=== PATIENT | male | born 1930 | race Caucasian/White ===

== ENCOUNTER 2016-04-09 16:17 | Emergency (ER) | payer MEDICARE, OTHER ==
--- NOTE | 2016-04-09 16:59 | ER Document Report ---
ED General - General Mode of Arrival: Medic Information source: Patient TRAVEL OUTSIDE OF THE [place] IN LAST 30 DAYS: No - HPI Patient complains to provider of: Weakness Onset: Other - 3-4 days ago Onset/Duration: Gradual, Worse Associated symptoms: Fever, Headache, Weakness. denies: Chest pain, Nonproductive cough, Shortness of breath, Sore throat Recently seen / treated by doctor: Yes - Recent Pneumonia <YNES HUYNH - Last Filed: 04/09/16 22:22> <SWEETIE HORN - Last Filed: 04/21/16 13:05> - General Chief Complaint: Fever Stated Complaint: FEVER Notes: Patient is an 86-year-old male presenting to the emergency department via EMS after he developed a fever of 102. Patient states that he has been feeling weak for the past 3-4 days and is progressively worsening. Patient states he was unable to consume any food today. Patient denies any throat pain or ear pain, but he does admit to a toothache that radiates behind his eyes and above his ears that he began noticing months ago. Patient also mentions that he has been having some mucousy diarrhea. Patient denies chest pain, cough, difficulty breathing, or abdominal pain. Patient has a recent history of sepsis and pneumonia on 2 separate occasions for which he went to rehab. (YNES HUYNH) - Related Data Allergies/Adverse Reactions: meperidine HCl [From Demerol] Allergy (Verified 04/09/16 16:47) HALLUCINATION morphine [Morphine] Allergy (Verified 04/09/16 16:47) HALLUCINATION albuterol Adverse Reaction (Mild, Verified 04/09/16 16:47) SORE THROAT Past Medical History - General Information source: Patient - Social History Smoking Status: Never Smoker Chew tobacco use (# tins/day): No Frequency of alcohol use: None Drug Abuse: None Family History: COPD Patient has suicidal ideation: No - Past Medical History Cardiac Medical History: Reports: Hx Atrial Fibrillation, Hx Hypertension - MEDS Denies: Hx Heart Attack Pulmonary Medical History: Reports: Hx Pneumonia Denies: Hx Asthma Neurological Medical History: Denies: Hx Cerebrovascular Accident, Hx Seizures Renal/ Medical History: Denies: Hx Peritoneal Dialysis GI Medical History: Reports: Hx Hiatal Hernia. Denies: Hx Hepatitis, Hx Ulcer Psychiatric Medical History: Reports: Hx Depression Infectious Medical History: Denies: Hx Hepatitis Past Surgical History: Reports: Hx Abdominal Surgery - colectomy. Denies: Hx Open Heart Surgery, Hx Pacemaker - Immunizations Hx Diphtheria, Pertussis, Tetanus Vaccination: - unk Hx Pneumococcal Vaccination: 12/01/15 <YNES HUYNH - Last Filed: 04/09/16 22:22> Review of Systems - Review of Systems Constitutional: See HPI, Fever, Weakness EENT: See HPI, Mouth pain - Tooth pain that radiates behind eyes and above ears.. denies: Ear pain, Throat pain Cardiovascular: No symptoms reported. denies: Chest pain Respiratory: No symptoms reported. denies: Cough Gastrointestinal: See HPI, Diarrhea. denies: Abdominal pain Genitourinary: No symptoms reported Male Genitourinary: No symptoms reported Musculoskeletal: No symptoms reported Skin: No symptoms reported Hematologic/Lymphatic: No symptoms reported Neurological/Psychological: No symptoms reported <YNES HUYNH - Last Filed: 04/09/16 22:22> Physical Exam - Vital signs Interpretation: Normal - General General appearance: Alert - HEENT Head: Normocephalic, Atraumatic Eyes: Normal Pupils: PERRL - Respiratory Respiratory status: No respiratory distress Chest status: Nontender Breath sounds: Normal Chest palpation: Normal - Cardiovascular Murmur: Yes - 3/4 systolic injection murmur - Abdominal Inspection: Other - large visceral hernia that is reducable. soft abdomen. Bowel sounds: Normal - Back Back: Normal, Nontender - Extremities General upper extremity: Normal inspection General lower extremity: Other - Chronic discoloration of lower extremities. R > L. Equal pulses. - Neurological Neuro grossly intact: Yes Cognition: Normal Leopold Coma Scale Eye Opening: Spontaneous Leopold Coma Scale Verbal: Oriented Ailin Coma Scale Motor: Obeys Commands Ailin Coma Scale Total: 15 Speech: Normal - Psychological Associated symptoms: Normal affect, Normal mood - Skin Skin Temperature: Warm Skin Moisture: Dry Skin Color: Normal <YNES HUYNH - Last Filed: 04/09/16 22:22> <SWEETIE HORN - Last Filed: 04/21/16 13:05> - Vital signs Vitals: Temp Pulse Resp BP Pulse Ox 100 F 82 23 H 126/78 H 94 04/09/16 16:20 04/09/16 16:20 04/09/16 16:20 04/09/16 16:20 04/09/16 16:20 (YNES HUYNH) (SWEETIE HORN) Course - Laboratory Result Diagrams: 04/09/16 16:50 04/09/16 16:50 <YNES HUYNH - Last Filed: 04/09/16 22:22> - Laboratory Result Diagrams: 04/09/16 16:50 04/09/16 16:50 <SWEETIE HORN - Last Filed: 04/21/16 13:05> - Re-evaluation Re-evalutation: 04/09/16 23:38 I personally performed the services described in the documentation, reviewed and edited the documentation which was dictated to my scribe in my presence, and it accurately records my words and actions. Patient presents emergency Department with a chief complaint of fever. Patient was inpatient back in December for pneumonia DC on 11:30 went to rehabilitation facility is at home now with home health, nurse almost every day of the week helping out with his daily activities abating.The fever today says he gets urinary tract infections frequently. He presented with a fever of 102.9 which defervesced with medication history of A. fib A. fib on the monitor rate controlled. Pulse ox 9596% on room air normotensive. Patient well-appearing nontoxic no cough chest pain or shortness of breath. Abdomen is soft no tenderness guarding rebound rigidity no skin changes or cellulitis. EKG interpreted myself A. fib rate controlled with history of the same. Chest x-ray negative for acute pathology urinary tract infection positive for infection and hematuria CT scan absent kidney stone or infection. Patient given IV Rocephin reassessed at bedside no longer tachycardic at the bedside fever is improved normotensive patient states he feels great and wants to go home. He assures me that he can follow up with his primary care physician one day. We'll send him home on Macrobid 12 to 24-hour follow-up and discuss reasons for ED return sooner (SWEETIE HORN) - Vital Signs Vital signs: Temp Pulse Resp BP Pulse Ox 100 F 82 18 118/45 L 94 04/09/16 16:20 04/09/16 16:20 04/09/16 19:45 04/10/16 00:01 04/10/16 00:01 (YNES HUYNH) (SWEETIE HORN) - Laboratory Laboratory results interpreted by me: 02/08/17 02/08/17 02/08/17 16:50 16:50 16:50 RBC 3.60 L Hgb 11.1 L Hct 33.6 L RDW 16.8 H Plt Count 142 L Seg Neutrophils % 78.6 H Lymphocytes % 9.3 L Glucose 161 H Magnesium 1.3 L AST 14 L Total Protein 5.7 L Albumin 2.9 L Urine Protein Urine Blood Urine Nitrite Ur Leukocyte Esterase 04/09/16 17:15 RBC Hgb Hct RDW Plt Count Seg Neutrophils % Lymphocytes % Glucose Magnesium AST Total Protein Albumin Urine Protein 100 H Urine Blood LARGE H Urine Nitrite POSITIVE H Ur Leukocyte Esterase LARGE H (SWEETIE HORN) Discharge <YNES HUYNH - Last Filed: 04/09/16 22:22> <SWEETIE HORN - Last Filed: 04/21/16 13:05> - Discharge Clinical Impression: Urinary tract infection Condition: Stable Disposition: HOME, SELF-CARE Instructions: Urinary Tract Infection ([facility]) Additional Instructions: Urinary Tract Infection Your evaluation indicates that you have a urinary tract infection. This is due to germs growing in the bladder. This is a common problem. This infection usually responds quickly to antibiotics. Your antibiotic should be taken exactly as prescribed. Drink plenty of fluids -- three to four quarts a day. Occasionally, a bladder anesthetic will be prescribed to help stop the feeling of urgency until the antibiotic has a chance to clear the infection. This may cause your urine to be dark orange. Certain urine infections require a culture. If the doctor obtained a culture, the results will be back in two days. You should call to see if a change in treatment is needed. A repeat urinalysis after you finish treatment is often recommended. The physician will let you know if further testing is required. Call the doctor if you develop fever, chills, flank pain, inability to urinate, or blood in the urine. Operative primary care physician in 12-24 hours return for increasing worsening or new symptoms Prescriptions: Nitrofurantoin/Nitrofuran Mac [Macrobid 100 mg Capsule] 1 tab PO BID #20 capsule Scribe Documentation - Scribe Written by Luisito:: Ynes Huynh 04/09/2016 [id number] acting as scribe for :: Preston <YNES HUYNH - Last Filed: 04/09/16 22:22>
[2016-04-09 17:06] LABS: ABSOLUTE EOSINOPHILS # (AUTO) 0.1 10^3/uL (0.0-0.6); ABSOLUTE LYMPHOCYTES (AUTO) 0.8 10^3/uL (0.5-4.7); ABSOLUTE MONOCYTES (AUTO) 0.8 10^3/uL (0.1-1.4); ABSOLUTE NEUT (AUTO) 6.5 10^3/uL (1.7-8.2); BASOPHILS % (AUTO) 0.4 % (0-2); EOSINOPHILS % (AUTO) 1.7 % (0-6); HEMATOCRIT 33.6 % (37.9-51.0); HEMOGLOBIN 11.1 g/dL (13.5-17.0); HGB HCT DIFFERENCE -0.3; LYMPHOCYTES % (AUTO) 9.3 % (13-45); MEAN CORPUSCULAR HEMOGLOBIN 30.8 pg (27.0-33.4); MEAN CORPUSCULAR VOLUME 93 fl (80-97); RED CELL DISTRIBUTION WIDTH 16.8 % (11.5-14.0); SEGMENTED NEUTROPHILS % (AUTO) 78.6 % (42-78); WHITE BLOOD COUNT 8.2 10^3/uL (4.0-10.5)
[2016-04-09 17:07] LABS: VENOUS BLOOD BASE EXCESS -4.6 mmol/L; VENOUS BLOOD HCO3 21.8 mmol/L (20-32); VENOUS BLOOD PCO2 45.2 mmHg (35-63); VENOUS BLOOD PH 7.3 (7.30-7.42)
[2016-04-09 17:11] LABS: PROTHROMBIN TIME 14.5 SEC (11.4-15.4)
[2016-04-09 17:24] LABS: ALANINE AMINOTRANSFERASE 23 U/L (21-72); ALBUMIN 2.9 g/dL (3.5-5.0); ALKALINE PHOSPHATASE 42 U/L (38-126); ANION GAP 12 (5-19); ASPARTATE AMINO TRANSFERASE 14 U/L (17-59); BILIRUBIN,TOTAL 0.7 mg/dL (0.2-1.3); BLOOD UREA NITROGEN 17 mg/dL (7-20); CALCIUM 8.4 mg/dL (8.4-10.2); CARBON DIOXIDE 23 mmol/L (22-30); CHLORIDE 104 mmol/L (98-107); CREATININE RESULT 0.92 mg/dL (0.52-1.25); GLUCOSE 161 mg/dL (75-110); POTASSIUM 4.1 mmol/L (3.6-5.0); SODIUM 138.8 mmol/L (137-145); TOTAL PROTEIN 5.7 g/dL (6.3-8.2)
[2016-04-09] MEDS ORDERED: ACETAMINOPHEN 325 MG TABLET PO ONE (17:53)
[2016-04-09 18:06] LABS: APPEARANCE,URINE CLOUDY; BILIRUBIN,URINE NEGATIVE (NEGATIVE); GLUCOSE, URINE NEGATIVE (NEGATIVE); KETONES,URINE NEGATIVE (NEGATIVE); LEUKOCYTE ESTERASE,URINE LARGE (NEGATIVE); NITRITE,URINE POSITIVE (NEGATIVE); PROTEIN,URINE 100 mg/dL (NEGATIVE); URINE SPECIFIC GRAVITY 1.013; UROBILINOGEN,URINE NEGATIVE mg/dL (<2.0)
[2016-04-09] MEDS ORDERED: CEFTRIAXONE INJ 1000 MG VIAL IV ONE (20:52)
[2016-04-10 00:26] VITALS: BP 118/45
--- NOTE | 2016-04-10 08:23 | EKG REPORT ---
SEVERITY:- ABNORMAL ECG - ATRIAL FIBRILLATION RIGHT BUNDLE BRANCH BLOCK : Confirmed by: Franko Sanchez MD 10-Apr-2016 08:23:13
== END 2016-04-10 00:29 | disposition home or self-care (01) ==
LOC: ER 16:17
DX: N39.0 Urinary tract infection, site not specified (principal); R31.9 Hematuria, unspecified; R50.9 Fever, unspecified; R53.1 Weakness; K08.89 Other specified disorders of teeth and supporting structures; R19.7 Diarrhea, unspecified; K46.9 Unspecified abdominal hernia without obstruction or gangrene; R01.1 Cardiac murmur, unspecified; I48.91 Unspecified atrial fibrillation; I10 Essential (primary) hypertension; Z87.01 Personal history of pneumonia (recurrent); Z88.5 Allergy status to narcotic agent; Z90.49 Acquired absence of other specified parts of digestive tract
CPT/HCPCS: 93005; 99285; 96374; 36415; 87040; 87086; 83735; 85025; 85610; 87088; 80053; 81001; 87186; 82803; 83605; 71010; 74176; 93010; A9270; J0696

== ENCOUNTER → 2016-05-22 | Outpatient (CLI) | payer MEDICARE, OTHER | LOC: OD 14:10 | PROVIDERS: ATTEND Urology | DX: N40.0 Benign prostatic hyperplasia without lower urinary tract symptoms (principal) | CPT/HCPCS: 36415; 84153 ==

== ENCOUNTER 2016-08-21 07:53 | Emergency (ER) | payer OTHER, MEDICARE ==
[2016-08-21 08:37] LABS: ABSOLUTE EOSINOPHILS # (AUTO) 0.1 10^3/uL (0.0-0.6); ABSOLUTE LYMPHOCYTES (AUTO) 0.5 10^3/uL (0.5-4.7); ABSOLUTE MONOCYTES (AUTO) 0.2 10^3/uL (0.1-1.4); ABSOLUTE NEUT (AUTO) 6.6 10^3/uL (1.7-8.2); BASOPHILS % (AUTO) 0.3 % (0-2); EOSINOPHILS % (AUTO) 1.4 % (0-6); HEMATOCRIT 41.1 % (37.9-51.0); HGB HCT DIFFERENCE -2.1; LYMPHOCYTES % (AUTO) 6.3 % (13-45); MEAN CORPUSCULAR HEMOGLOBIN 30.3 pg (27.0-33.4); MEAN CORPUSCULAR HGB CONC 31.6 g/dL (32.0-36.0); MEAN CORPUSCULAR VOLUME 96 fl (80-97); MONOCYTES % (AUTO) 2.9 % (3-13); RED BLOOD COUNT 4.28 10^6/uL (4.35-5.55); RED CELL DISTRIBUTION WIDTH 14.6 % (11.5-14.0); SEGMENTED NEUTROPHILS % (AUTO) 89.1 % (42-78); WHITE BLOOD COUNT 7.4 10^3/uL (4.0-10.5)
[2016-08-21 08:39] LABS: APPEARANCE,URINE CLEAR; BILIRUBIN,URINE NEGATIVE (NEGATIVE); GLUCOSE, URINE NEGATIVE (NEGATIVE); KETONES,URINE NEGATIVE (NEGATIVE); LEUKOCYTE ESTERASE,URINE NEGATIVE (NEGATIVE); NITRITE,URINE NEGATIVE (NEGATIVE); PROTEIN,URINE NEGATIVE (NEGATIVE); URINE SPECIFIC GRAVITY 1.014; UROBILINOGEN,URINE NEGATIVE mg/dL (<2.0)
[2016-08-21 08:53] LABS: ALANINE AMINOTRANSFERASE 27 U/L (21-72); ALBUMIN 4.3 g/dL (3.5-5.0); ALKALINE PHOSPHATASE 53 U/L (38-126); ANION GAP 12 (5-19); ASPARTATE AMINO TRANSFERASE 22 U/L (17-59); BILIRUBIN,DIRECT 0.3 mg/dL (0.0-0.4); BILIRUBIN,TOTAL 0.8 mg/dL (0.2-1.3); BLOOD UREA NITROGEN 30 mg/dL (7-20); CALCIUM 9.2 mg/dL (8.4-10.2); CARBON DIOXIDE 27 mmol/L (22-30); CHLORIDE 103 mmol/L (98-107); CREATININE RESULT 0.94 mg/dL (0.52-1.25); GLUCOSE 115 mg/dL (75-110); POTASSIUM 5.4 mmol/L (3.6-5.0); SODIUM 141.7 mmol/L (137-145); TOTAL PROTEIN 7.7 g/dL (6.3-8.2)
--- NOTE | 2016-08-21 09:01 | RADIOLOGY REPORT (SQ) ---
EXAM DESCRIPTION: CHEST SINGLE VIEW COMPLETED DATE/TIME: 08/21/2016 8:44 am REASON FOR STUDY: shaking, chf, hypoxia COMPARISON: 04/09/2016, 01/23/2016 EXAM PARAMETERS: NUMBER OF VIEWS: One view. TECHNIQUE: Single frontal radiographic view of the chest acquired. RADIATION DOSE: NA LIMITATIONS: None. FINDINGS: LUNGS AND PLEURA: Bandlike scarring or atelectasis unchanged in the left mid lung. Few Janeth lines at both lung bases, question mild interstitial edema. No alveolar infiltrates worri some for alveolar edema or pneumonia. No pleural effusion. No pneumothorax. MEDIASTINUM AND HILAR STRUCTURES: No masses. Contour normal. HEART AND VASCULAR STRUCTURES: Mild cardiomegaly BONES: No acute findings. HARDWARE: None in the chest. OTHER: No other significant finding. IMPRESSION: Cardiomegaly Few Janeth lines at both bases, question mild interstitial edema. Chronic scarring left mid lung TECHNICAL DOCUMENTATION: JOB ID: [id number]
[2016-08-21] MEDS ORDERED: ALBUTEROL SULFATE 0.083% NEB 2.5 MG/3 ML AMPUL NEB ONE (09:09)
[2016-08-21] MEDS ORDERED: CEFTRIAXONE 1 GM/D5W RTU 50 ML IV ONE (09:10)
[2016-08-21] MEDS ORDERED: NORMAL SALINE 1000 ML 1,000 ML IV ONE (09:21)
--- NOTE | 2016-08-21 09:22 | ER Document Report ---
ED General - General Chief Complaint: Tremor Stated Complaint: UPPER EXTREMITY PROBLEM Time Seen by Provider: 08/21/16 08:10 Mode of Arrival: Ambulatory Information source: Patient Notes: Patient is an 86-year-old male who lives by himself at home who presents to the ER today for chills that began at 230 this morning with shaking. Patient states that this is what happened last time he had a urinary tract infection and had to be admitted to the hospital due to sepsis. He denies any dysuria, hematuria, lower abdominal pain but does admit to some worsening back pain, although he does have back pain chronically. He denies any fever that he knows of, nausea, vomiting, diarrhea, chest pain, shortness of breath or cough. He states that he really felt fine until 230 this morning. TRAVEL OUTSIDE OF THE [place] IN LAST 30 DAYS: No - Related Data Allergies/Adverse Reactions: meperidine HCl [From Demerol] Allergy (Verified 04/09/16 16:47) HALLUCINATION morphine [Morphine] Allergy (Verified 04/09/16 16:47) HALLUCINATION albuterol Adverse Reaction (Mild, Verified 04/09/16 16:47) SORE THROAT Past Medical History - General Information source: Patient - Social History Smoking Status: Never Smoker Chew tobacco use (# tins/day): No Frequency of alcohol use: None Drug Abuse: None Family History: COPD - Past Medical History Cardiac Medical History: Reports: Hx Atrial Fibrillation, Hx Hypercholesterolemia, Hx Hypertension - MEDS Denies: Hx Heart Attack Pulmonary Medical History: Reports: Hx Pneumonia Denies: Hx Asthma Neurological Medical History: Denies: Hx Cerebrovascular Accident, Hx Seizures Endocrine Medical History: Reports: Hx Diabetes Mellitus Type 2 Renal/ Medical History: Denies: Hx Peritoneal Dialysis GI Medical History: Reports: Hx Hiatal Hernia. Denies: Hx Hepatitis, Hx Ulcer Psychiatric Medical History: Reports: Hx Depression Infectious Medical History: Denies: Hx Hepatitis Past Surgical History: Reports: Hx Abdominal Surgery - colectomy, Hx Bowel Surgery - partial colectomy, Hx Cholecystectomy. Denies: Hx Open Heart Surgery , Hx Pacemaker - Immunizations Hx Diphtheria, Pertussis, Tetanus Vaccination: - unk Hx Pneumococcal Vaccination: 12/01/15 Review of Systems - Review of Systems Constitutional: See HPI EENT: No symptoms reported Cardiovascular: No symptoms reported Respiratory: No symptoms reported Gastrointestinal: No symptoms reported Genitourinary: See HPI Male Genitourinary: No symptoms reported Musculoskeletal: No symptoms reported Skin: No symptoms reported Hematologic/Lymphatic: No symptoms reported Neurological/Psychological: No symptoms reported Physical Exam - Vital signs Vitals: Temp Pulse Resp BP Pulse Ox 98.8 F 87 18 152/57 H 96 08/21/16 08:10 08/21/16 08:10 08/21/16 08:10 08/21/16 08:10 08/21/16 08:10 - Notes Notes: PHYSICAL EXAMINATION: GENERAL: Mildly ill-appearing, having chills with some shaking generally, but in no acute distress. HEAD: Atraumatic, normocephalic. EYES: Pupils equal round and reactive to light, extraocular movements intact, sclera anicteric, conjunctiva are normal. NECK: Normal range of motion, supple without lymphadenopathy LUNGS: CTAB and equal. No wheezes rales or rhonchi. HEART: Regular rate and rhythm without murmurs ABDOMEN: Soft, no tenderness. No guarding, no rebound BACK: no vertebral tenderness, normal ROM GI/: no CVA tenderness EXTREMITIES: Normal range of motion, no pitting edema. No cyanosis. NEUROLOGICAL: Cranial nerves grossly intact. Normal sensory/motor exams. PSYCH: Normal mood, normal affect. SKIN: Warm, Dry, normal turgor, no rashes or lesions noted Course - Re-evaluation Re-evalutation: 08/21/16 09:22 pt takes potassium, his potassium is a little high today, 5.4, I advised him to hold it for 1-2 days and follow up with pcp. 08/21/16 10:19 pt has been admitted with sepsis from urine and says this feels the same, his chest x ray is without abnormality. urine shows blood today and 2 wbc but no other signs of infection, labwork unremarkable, wbc normal, pt afebrile with normal vital signs. There is no reason to admit him with normal workup, but I will cover for possible uti that was not caught today and urine culture is pending. I do not want pt to come back septic and he does appear to be having sweating and chills here in ER. - Vital Signs Vital signs: Temp Pulse Resp BP Pulse Ox 98.8 F 87 18 152/57 H 96 08/21/16 08:10 08/21/16 08:10 08/21/16 08:10 08/21/16 08:10 08/21/16 08:10 - Laboratory Result Diagrams: 08/21/16 08:00 08/21/16 08:00 Laboratory results interpreted by me: 08/21/16 08/21/16 08/21/16 08:00 08:00 08:00 RBC 4.28 L Hgb 13.0 L MCHC 31.6 L RDW 14.6 H Plt Count 142 L Seg Neutrophils % 89.1 H Lymphocytes % 6.3 L Monocytes % 2.9 L Potassium 5.4 H BUN 30 H Glucose 115 H Urine Blood MODERATE H Discharge - Discharge Clinical Impression: Chills (without fever) Condition: Stable Disposition: HOME, SELF-CARE Additional Instructions: Return with worsening symptoms. Follow up with your primary care provider, call today for follow up appointment. Prescriptions: Cephalexin [Cephalexin 500 MG Capsule] 1 cap PO QID #28 capsule
[2016-08-21 10:49] VITALS: BP 116/58
== END 2016-08-21 10:49 | disposition home or self-care (01) ==
LOC: ER 07:53
DX: R68.83 Chills (without fever) (principal); R31.9 Hematuria, unspecified; M54.9 Dorsalgia, unspecified; G89.29 Other chronic pain; I10 Essential (primary) hypertension; E11.9 Type 2 diabetes mellitus without complications; Z87.440 Personal history of urinary (tract) infections; Z88.5 Allergy status to narcotic agent
CPT/HCPCS: 99284; 96361; 96365; 36415; 87086; 85025; 80053; 81001; 71010; J7030; J0696

== ENCOUNTER 2016-10-17 11:53 | Inpatient (IN) | payer OTHER, MEDICARE ==
[2016-10-17] MEDS ORDERED: ALBUTEROL SULFATE 0.083% NEB 2.5 MG/3 ML AMPUL NEB ONE (12:10)
--- NOTE | 2016-10-17 12:10 | ER Document Report ---
ED Respiratory Problem - General Mode of Arrival: Medic Information source: Patient, Emergency Med Personnel TRAVEL OUTSIDE OF THE [place] IN LAST 30 DAYS: No - HPI Patient complains to provider of: Short of breath Associated symptoms: Other - see above <YUMIKO CASTILLO - Last Filed: 10/17/16 14:53> <ASHLEE AVILA - Last Filed: 10/17/16 19:23> - General Stated Complaint: PAIN ALL OVER Time Seen by Provider: 10/17/16 11:59 Notes: Patient is an 86 year old male who presents to the ED via EMS from home with complaints of generalized intermittent body aches and sudden onset episode of diarrhea this morning. Per EMS patient had breakfast this morning, had a normal appetite and had a sudden episode of diarrhea and an episode of fecal incontinence. Patient is unsure if he possibly just did not wipe well enough. Upon arrival to the ED he became SOB and was shaking which is new for him. Patient has a chronically distended abdomen and left abdominal pain. Patient denies any chest pain currently. Patient does add that he started having a pain in his left thigh this morning, but he no longer has that pain. He finished antibiotics for cellulitis of his lower legs approximately 1 month ago. PCP: Juan Jones (YUMIKO CASTILLO) - Related Data Allergies/Adverse Reactions: meperidine HCl [From Demerol] Allergy (Verified 10/17/16 13:08) HALLUCINATION morphine [Morphine] Allergy (Verified 10/17/16 13:08) HALLUCINATION albuterol Adverse Reaction (Mild, Verified 10/17/16 13:08) SORE THROAT Home Medications: Current Home Medications Acetaminophen [Tylenol Extra Strength 500 mg Tablet] 2 tab PO Q6HP PRN 10/17/16 [History] Alprazolam [Xanax 0.5 mg Tablet] 0.5 mg PO Q6HP PRN 10/17/16 [History] Aspirin [Aspirin EC] 81 mg PO DAILY 10/17/16 [History] Atorvastatin Calcium [Lipitor 10 mg Tablet] 10 mg PO QHS 10/17/16 [History] Cholecalciferol (Vitamin D3) [Vitamin D3 1000 Unit Tablet] 1,000 unit PO DAILY 10/17/16 [History] Escitalopram Oxalate [Lexapro 10 mg Tablet] 10 mg PO DAILY 10/17/16 [History] Furosemide [Lasix 40 mg Tablet] 40 mg PO DAILYP PRN 10/17/16 [History] Glimepiride [Amaryl] 2 mg PO QAM 10/17/16 [History] Isosorbide Mononitrate [Imdur 60 mg Tablet.er] 60 mg PO DAILY 10/17/16 [History] Losartan Potassium [Cozaar 50 mg Tablet] 25 mg PO DAILY 10/17/16 [History] Metoprolol Succinate [Toprol Xl 25 mg Tab.sr] 25 mg PO DAILY 10/17/16 [History] Nitroglycerin [Nitrolingual] 1 applic SL Q5MP PRN 10/17/16 [History] Omeprazole 40 mg PO QAM 10/17/16 [History] Potassium Chloride [K-Tab ER] 20 meq PO DAILY 10/17/16 [History] Tamsulosin HCl [Flomax 0.4 mg Cap.sr] 0.4 mg PO DAILY 10/17/16 [History] Umeclidinium Brm/Vilanterol Tr [Anoro Ellipta 62.5-25 Mcg INH] 1 each IH DAILY 10/17/16 [History] Past Medical History - General Information source: Patient - Social History Smoking Status: Former Smoker Chew tobacco use (# tins/day): No Frequency of alcohol use: None Drug Abuse: None Family History: COPD - Past Medical History Cardiac Medical History: Reports: Hx Atrial Fibrillation, Hx Hypercholesterolemia, Hx Hypertension - MEDS Pulmonary Medical History: Reports: Hx COPD, Hx Pneumonia Endocrine Medical History: Reports: Hx Diabetes Mellitus Type 2 Renal/ Medical History: Denies: Hx Peritoneal Dialysis GI Medical History: Reports: Hx Hiatal Hernia Psychiatric Medical History: Reports: Hx Anxiety, Hx Depression Infectious Medical History: Denies: Hx Hepatitis Past Surgical History: Reports: Hx Abdominal Surgery - colectomy, Hx Bowel Surgery - partial colectomy, Hx Cardiac Catheterization - stent placement, Hx Cholecystectomy. Denies: Hx Open Heart Surgery, Hx Pacemaker - Immunizations Hx Diphtheria, Pertussis, Tetanus Vaccination: - unk Hx Pneumococcal Vaccination: 12/01/15 <YUMIKO CASTILLO - Last Filed: 10/17/16 14:53> Review of Systems - Review of Systems Constitutional: See HPI, Other - generalized body aches EENT: No symptoms reported Cardiovascular: See HPI. denies: Chest pain Respiratory: See HPI, Short of breath Gastrointestinal: See HPI, Diarrhea Genitourinary: No symptoms reported Male Genitourinary: No symptoms reported Musculoskeletal: No symptoms reported Skin: No symptoms reported Hematologic/Lymphatic: No symptoms reported Neurological/Psychological: See HPI, Tremor <YUMIKO CASTILLO - Last Filed: 10/17/16 14:53> Physical Exam <YUMIKO CASTILLO - Last Filed: 10/17/16 14:53> <ASHLEE AVILA - Last Filed: 10/17/16 19:23> - Vital signs Vitals: Resp Pulse Ox 41 H 84 L 10/17/16 12:07 10/17/16 12:07 - Notes Notes: GENERAL: Alert, interacts well. Appears uncomfortable. Appears short of breath. HEAD: Normocephalic, atraumatic. EYES: Pupils equal, round, and reactive to light. Extraocular movements intact. ENT: Oral mucosa dry, tongue midline. NECK: Full range of motion. Supple. Trachea midline. LUNGS: Rales, expiratory wheezes. Appears somewhat short of breath. Mouth breathing, using accessory muscles to breath. Hypoxic, 78% on room air. He was 87% on 4L. HEART: Tachycardic, irregularly irregular. No murmurs, gallops, or rubs. ABDOMEN: Soft, non-tender. Distended, patient reports it is chronic. Bowel sounds present in all 4 quadrants. EXTREMITIES: Moves all 4 extremities spontaneously. 2 plus pitting edema bilaterally, right greater than left up to mid calf. No cyanosis. NEUROLOGICAL: Alert and oriented x3. Normal speech. Tremor to right upper extremity, mild tremor to left upper extremity. No tremor to lower extremities. PSYCH: Normal affect, normal mood. SKIN: Hot to touch. Dry, normal turgor. Erythema to lower inner left thigh and posteriorly. (YUMIKO CASTILLO) Course - Laboratory Result Diagrams: 10/17/16 12:15 10/17/16 12:15 - Consults Time consulted: 13:48 Dr. Bullard Time consulted: 13:49 <YUMIKO CASTILLO - Last Filed: 10/17/16 14:53> - Laboratory Result Diagrams: 10/17/16 12:15 10/17/16 12:15 <ASHLEE AVILA - Last Filed: 10/17/16 19:23> - Re-evaluation Re-evalutation: 10/17/16 14:06 Patient arrived was hypoxic and quite tachypneic, placed on 4 L via nasal cannula but did not improve significantly pulse ox went from 78 up to 83% 10/17/16 14:16 Despite being on oxygen the patient's oxygen level did not rise above 83%, patient was placed on BiPAP, 12/5 with 50% FiO2, he was able to be titrated down to 30% FiO2, responded well, no longer using accessory muscles of respiration or belly breathing. Wheezing is decreased. Patient was found to be febrile on rectal temperature. CBC does not have any leukocytosis though he is anemic with hemoglobin of 11.4, coags normal, venous blood gas shows respiratory acidosis with pH of 7.25 and a PCO2 of 68.8, this is also treated with the BiPAP and albuterol. CMP shows elevated potassium of 5.2 which will be treated with the Lasix which was also given for the peripheral edema and the crackles in the lungs, no evidence of renal failure, lactic acid normal, cardiac enzymes negative, proBNP elevated at 1200, no history of congestive heart failure, patient was given Lasix 40 mg IV, urinalysis does not show any signs of infection. Chest x-ray shows cardiomegaly without overt CHF, there is a right lower lobe pneumonia. Patient was started on cefepime and Levaquin due to his Pseudomonas risk. Patient is given Solu-Medrol as well. Discussed the patient with Dr. Petersen from the hospitalist service who accepts the patient to her service. Patient is a full admission, patient will be put in the ICU as the patient has just recently experienced hypotension with a blood pressure of 86/44, he will be given a bolus of normal saline and we will see how he responds to this. If his blood pressure improves he may be transferred to the IMCU instead. 10/17/16 15:24 Patient did become somewhat hypotensive, received 2 L of normal saline which improved the hypotension however did not completely resolve it. Patient will continue to be assigned to the intensive care unit. As the patient's hypotension is fluid responsive at present I do not feel the patient needs a central line and pressors. I did inform Dr. Petersen of this development. She is on her way to see the patient in the emergency department. (ASHLEE AVILA) - Vital Signs Vital signs: Temp Pulse Resp BP Pulse Ox 98.1 F 92 22 H 90/51 L 98 10/17/16 16:09 10/17/16 18:00 10/17/16 18:00 10/17/16 18:00 10/17/16 18:00 - Laboratory Laboratory results interpreted by me: 10/17/16 10/17/16 10/17/16 12:15 12:15 12:15 RBC 3.71 L Hgb 11.4 L Hct 35.5 L RDW 14.5 H Seg Neutrophils % 82.7 H Lymphocytes % 9.5 L VBG pH VBG pCO2 Potassium 5.2 H Chloride 108 H Glucose 120 H AST 16 L Creatine Kinase 47 L NT-Pro-B Natriuret Pep 1200 H Urine Blood 10/17/16 10/17/16 12:15 12:45 RBC Hgb Hct RDW Seg Neutrophils % Lymphocytes % VBG pH 7.25 L VBG pCO2 68.8 H* Potassium Chloride Glucose AST Creatine Kinase NT-Pro-B Natriuret Pep Urine Blood MODERATE H - EKG Interpretation by Me Additional EKG results interpreted by me: 10/17/16 14:18 EKG shows atrial fibrillation at a rate of 88, slight ST segment depression <1 mm in leads II, 3, aVF, V3 through V6, no ST segment elevations, concordant T- wave inversions in V2 per my interpretation. (ASHLEE AVILA) - Consults Reason for consultation: 10/17/16 13:48 Discussed patient. She said to call Dr. Bullard. (YUMIKO CASTILLO) Dr. Bullard Reason for consultation: 10/17/16 13:[address] Bullard, she did not answer. 10/17/16 1350 Discussed patient. Patient is accepted for admission to ICU. (YUMIKO CASTILLO) Critical Care Note - Critical Care Note Total time excluding time spent on procedures (mins): 45 <ASHLEE AVILA - Last Filed: 10/17/16 19:23> Discharge <YUMIKO CASTILLO - Last Filed: 10/17/16 14:53> - Discharge Admitting Provider: Kandice Bullard Unit Admitted: ICU <ASHLEE AVILA - Last Filed: 10/17/16 19:23> - Discharge Clinical Impression: COPD exacerbation, Acute hypercapnic respiratory failure, Hyperkalemia Right lower lobe pneumonia Qualifiers: Pneumonia type: due to unspecified organism Qualified Code(s): J18.1 - Lobar pneumonia, unspecified organism Condition: Serious Disposition: ADMITTED INPATIENT Scribe Attestation: 10/17/16 19:22 I personally performed the services described in the documentation, reviewed and edited the documentation which was dictated to the scribe in my presence, and it accurately records my words and actions. (ASHLEE AVILA) Scribe Documentation - Scribe Written by Shama:: shama Palomo, 10/17/2016, 1247 acting as scribe for :: Adelaida <YUMIKO CASTILLO - Last Filed: 10/17/16 14:53>
[2016-10-17] MEDS ORDERED: FUROSEMIDE INJ/PF 40 MG/4 ML SDV IV ONE (12:12)
[2016-10-17] MEDS ORDERED: ASPIRIN 81 MG TABLET, CHEWABLE PO ONE (12:12)
[2016-10-17 12:40] LABS: ABSOLUTE BASOPHILS # (AUTO) 0.1 10^3/uL (0.0-0.2); ABSOLUTE EOSINOPHILS # (AUTO) 0.1 10^3/uL (0.0-0.6); ABSOLUTE LYMPHOCYTES (AUTO) 0.8 10^3/uL (0.5-4.7); ABSOLUTE MONOCYTES (AUTO) 0.5 10^3/uL (0.1-1.4); ABSOLUTE NEUT (AUTO) 6.9 10^3/uL (1.7-8.2); BASOPHILS % (AUTO) 0.6 % (0-2); EOSINOPHILS % (AUTO) 1.4 % (0-6); HEMATOCRIT 35.5 % (37.9-51.0); HEMOGLOBIN 11.4 g/dL (13.5-17.0); HGB HCT DIFFERENCE -1.3; LYMPHOCYTES % (AUTO) 9.5 % (13-45); MEAN CORPUSCULAR HEMOGLOBIN 30.6 pg (27.0-33.4); MEAN CORPUSCULAR VOLUME 96 fl (80-97); MONOCYTES % (AUTO) 5.8 % (3-13); RED BLOOD COUNT 3.71 10^6/uL (4.35-5.55); RED CELL DISTRIBUTION WIDTH 14.5 % (11.5-14.0); SEGMENTED NEUTROPHILS % (AUTO) 82.7 % (42-78); WHITE BLOOD COUNT 8.4 10^3/uL (4.0-10.5)
[2016-10-17 12:41] LABS: VENOUS BLOOD BASE EXCESS 0.4 mmol/L; VENOUS BLOOD HCO3 29.2 mmol/L (20-32); VENOUS BLOOD PH 7.25 (7.30-7.42)
[2016-10-17] MEDS ORDERED: ACETAMINOPHEN 650 MG SUPP.RECT PR ONE (12:46)
[2016-10-17 12:49] LABS: VENOUS BLOOD PCO2 68.8 mmHg (35-63)
[2016-10-17 12:50] LABS: PROTHROMBIN TIME 13.7 SEC (11.4-15.4)
[2016-10-17] MEDS ORDERED: ASPIRIN 300 MG SUPP, RECTAL PR ONE (12:53)
[2016-10-17 13:11] LABS: ALANINE AMINOTRANSFERASE 24 U/L (21-72); ALKALINE PHOSPHATASE 54 U/L (38-126); ANION GAP 8 (5-19); ASPARTATE AMINO TRANSFERASE 16 U/L (17-59); BILIRUBIN,DIRECT 0.4 mg/dL (0.0-0.4); BLOOD UREA NITROGEN 20 mg/dL (7-20); CALCIUM 9.1 mg/dL (8.4-10.2); CARBON DIOXIDE 26 mmol/L (22-30); CHLORIDE 108 mmol/L (98-107); CREATINE KINASE 47 U/L (55-170); CREATININE RESULT 0.85 mg/dL (0.52-1.25); GLUCOSE 120 mg/dL (75-110); POTASSIUM 5.2 mmol/L (3.6-5.0); SODIUM 142.2 mmol/L (137-145)
[2016-10-17 13:14] LABS: APPEARANCE,URINE CLEAR; BILIRUBIN,URINE NEGATIVE (NEGATIVE); GLUCOSE, URINE NEGATIVE (NEGATIVE); KETONES,URINE NEGATIVE (NEGATIVE); LEUKOCYTE ESTERASE,URINE NEGATIVE (NEGATIVE); NITRITE,URINE NEGATIVE (NEGATIVE); PROTEIN,URINE NEGATIVE (NEGATIVE); URINE SPECIFIC GRAVITY 1.017; UROBILINOGEN,URINE NEGATIVE mg/dL (<2.0)
--- NOTE | 2016-10-17 13:20 | RADIOLOGY REPORT (SQ) ---
EXAM DESCRIPTION: CHEST SINGLE VIEW COMPLETED DATE/TIME: 10/17/2016 1:01 pm REASON FOR STUDY: SOB, hypoxia COMPARISON: 08/21/2016 EXAM PARAMETERS: NUMBER OF VIEWS: One view. TECHNIQUE: Digital Frontal radiographic views of the chest acquired. RADIATION DOSE: NA LIMITATIONS: None. FINDINGS: LUNGS AND PLEURA: Subsegmental atelectasis left mid lung. Ill-defined opacification in th e right lung base. MEDIASTINUM AND HILAR STRUCTURES: No masses or contour abnormalities. HEART AND VASCULAR STRUCTURES: Cardiomegaly with no evidence failure. BONES: No acute findings. HARDWARE: None. OTHER: No other significant finding. IMPRESSION: 1. Cardiomegaly with no eliana CHF. 2. Possible early right lower lobe pneumonia. TECHNICAL DOCUMENTATION: JOB ID: [id number] [employer]- All Rights Reserved
[2016-10-17 13:23] LABS: CREATINE KINASE MB 1.32 ng/mL (<4.55)
[2016-10-17 13:26] LABS: TROPONIN I < 0.012 ng/mL
[2016-10-17] MEDS ORDERED: CEFTRIAXONE 1 GM/D5W RTU 1 GM/50 ML RTUPB IV ONE (13:43)
[2016-10-17] MEDS ORDERED: CEFEPIME 2 GM/D5W RTU 2 GM/50 ML RTUPB IV ONE (13:44)
[2016-10-17] MEDS ORDERED: LEVOFLOXACIN 750 MG/D5W RTU 750 MG/150 ML RTUPB IV ONE (13:44)
[2016-10-17] MEDS ORDERED: NORMAL SALINE 1000 ML 1,000 ML IV ONE ×4 (13:45→14:42)
[2016-10-17] MEDS ORDERED: ACETAMINOPHEN 325 MG TABLET PO PRN (15:56)
[2016-10-17] MEDS ORDERED: ONDANSETRON HCL INJ/PF 4 MG/2 ML SDV IV PRN (16:09)
[2016-10-17] MEDS ORDERED: METHYLPREDNISOLONE INJ 125 MG/2 ML SDV IV ONE (16:19)
[2016-10-17] MEDS: IPRATROPIUM/ALBUTEROL 0.5-2.5 MG/3 ML AMPUL NEB SCH ×2 (16:45→20:07)
[2016-10-17] MEDS ORDERED: NORMAL SALINE 250 ML IV ONE (17:56)
[2016-10-17] MEDS ORDERED: GLUCAGON,HUMAN RECOMB 1 MG INJ IM PRN (18:17)
[2016-10-17] MEDS ORDERED: DEXTROSE 50%-WATER 25 GM/50 ML DISP.SYRIN IV PRN ×2 (18:17)
[2016-10-17] MEDS ORDERED: INSULIN REG, HUMAN 100 UNIT/ML 3 ML VIAL (PYX) SUBCUT PRN (18:17)
[2016-10-17] MEDS ORDERED: DEXTROSE 40% GEL 15 GM TUBE PO PRN ×2 (18:17)
--- NOTE | 2016-10-17 18:42 | EKG REPORT ---
SEVERITY:- ABNORMAL ECG - ATRIAL FIBRILLATION PROBABLE ANTEROSEPTAL INFARCT, AGE INDETERM LATERAL LEADS ARE ALSO INVOLVED : Confirmed by: Franko Sanchez MD 17-Oct-2016 18:42:02
--- NOTE | 2016-10-17 19:09 | PDOC H&P ---
History of Present Illness Admission Date/PCP: 10/17/16 14:51 DEEPTI FARRIS Patient complains of: Shortness of breath History of Present Illness: JENNIFER AGUILAR is a 86 year old white male with a past medical history significant for diabetes mellitus, previous stroke, A. fib, and hypertension who presents to the service with progressive shortness of breath. The patient denies a history of congestive heart failure and is usually seen at [facility]. In review of his medications he certainly is on medicines that would be consistent with a history of heart failure. In the emergency room the patient was noted to have an O2 sat of 78% on room air. He was started on bilevel Pap. Chest x-ray was done which showed a right lower lobe infiltrate and the patient happened to be febrile as well. BiPAP was initially started at 50% FiO2. Patient was able to be titrated down to 30% FiO2 with O2 sat of 98%. Unfortunately his blood pressure was low down in the emergency room. He was given a total of 2 L bolus down in the emergency room with return of his blood pressure to 100 systolic. At the time that I saw him his systolic blood pressure was back down to 92 and before I left the interview the patient's blood pressure was down to 88. Past Medical History Cardiac Medical History: Reports: Atrial Fibrillation, Hyperlipidema, Hypertension - MEDS Denies: Myocardial Infarction Pulmonary Medical History: Reports: Chronic Obstructive Pulmonary Disease (COPD) , Pneumonia Denies: Asthma Neurological History Note: Essential tremor. Endocrine Medical History: Reports: Diabetes Mellitus Type 2 GI Medical History: Reports: Hiatal Hernia Psychiatric Medical History: Reports: Depression Hematology: Reports: Anemia - ON IRON Past Surgical History Past Surgical History: Partial colectomy, blepharoplasty, cataract surgery melanoma removal. Past Surgical History: Reports: Cardiac Catheterization - stent placement, Cholecystectomy, Herniorrhaphy Social History Information Source: Patient Lives with: Alone Smoking Status: Former Smoker - Patient quit in 1999. Frequency of Alcohol Use: None Hx Recreational Drug Use: No Drugs: None Hx Prescription Drug Abuse: No Family History Family History: COPD Parental Family History Reviewed: Yes Children Family History Reviewed: Yes Sibling(s) Family History Reviewed.: Yes Medication/Allergy Home Medications: Acetaminophen [Tylenol Extra Strength 500 mg Tablet] 2 tab PO Q6HP PRN 10/17/16 Alprazolam [Xanax 0.5 mg Tablet] 0.5 mg PO Q6HP PRN 10/17/16 Aspirin [Aspirin EC] 81 mg PO DAILY 10/17/16 Atorvastatin Calcium [Lipitor 10 mg Tablet] 10 mg PO QHS 10/17/16 Cholecalciferol (Vitamin D3) [Vitamin D3 1000 Unit Tablet] 1,000 unit PO DAILY 10/17/16 Escitalopram Oxalate [Lexapro 10 mg Tablet] 10 mg PO DAILY 10/17/16 Furosemide [Lasix 40 mg Tablet] 40 mg PO DAILYP PRN 10/17/16 Glimepiride [Amaryl] 2 mg PO QAM 10/17/16 Isosorbide Mononitrate [Imdur 60 mg Tablet.er] 60 mg PO DAILY 10/17/16 Losartan Potassium [Cozaar 50 mg Tablet] 25 mg PO DAILY 10/17/16 Metoprolol Succinate [Toprol Xl 25 mg Tab.sr] 25 mg PO DAILY 10/17/16 Nitroglycerin [Nitrolingual] 1 applic SL Q5MP PRN 10/17/16 Omeprazole 40 mg PO QAM 10/17/16 Potassium Chloride [K-Tab ER] 20 meq PO DAILY 10/17/16 Tamsulosin HCl [Flomax 0.4 mg Cap.sr] 0.4 mg PO DAILY 10/17/16 Umeclidinium Brm/Vilanterol Tr [Anoro Ellipta 62.5-25 Mcg INH] 1 each IH DAILY 10/17/16 Allergies/Adverse Reactions: meperidine HCl [From Demerol] Allergy (Verified 10/17/16 13:08) HALLUCINATION morphine [Morphine] Allergy (Verified 10/17/16 13:08) HALLUCINATION albuterol Adverse Reaction (Mild, Verified 10/17/16 13:08) SORE THROAT Review of Systems Review of Systems: Patient denies any chest pain, chills, nausea, vomiting, blood in the urine, blood in the stool, coughing up blood, throwing up blood. He admits to lower extremity edema and pain behind the knee. He says that the right side is always worse than the left. He denies abdominal pain. He admits to having a constant tremor. Physical Exam Vital Signs: Temp Pulse Resp BP Pulse Ox 101.5 F H 26 H 92/52 L 96 10/17/16 14:23 10/17/16 15:15 10/17/16 15:15 10/17/16 15:15 GENERAL: In general is a well-developed well-nourished appearing white male resting in bed currently in no acute distress. HEENT: Normocephalic, atraumatic. Trachea is midline. Sclera are anicteric. Dry mucous membranes. HEART: [Irregular rate and rhythm. 2/6 systolic ejection murmurs. No rubs or gallops.] LUNGS: [Difficult to auscultate secondary to bilevel Pap. Coarse breath sounds Bilaterally with equal rise and fall of the chest.] ABDOMEN: [Soft, nontender, distended with normoactive bowel sounds. Reducible ventral hernia.] EXTREMETIES: [No clubbing, cyanosis. Lower extremity edema: 2+ pitting on the right and 1+ on the left. Pain with palpation in the left popliteal fossa. 1 + peripheral pulses bilaterally.] NEURO: [Awake, alert and oriented 3. Cranial nerves II through XII are grossly intact. Ends Breakage Clerk is 5 out of 5. Lower extremity strength as well as upper extremity strength is 4 out of 5 bilaterally. Skin: Warm dry. Vascular changes in the lower extremities. No body hair is present on the lower extremities. Venous stasis changes. : Normal-appearing penis and scrotum. Results Impressions: Chest X-Ray 10/17/16 12:12 IMPRESSION: 1. Cardiomegaly with no eliana CHF. 2. Possible early right lower lobe pneumonia. Assessment & Plan - Diagnosis (1) Acute respiratory failure with hypoxemia Plan: Continue bilevel Pap. Acute respiratory failure is likely secondary to underlying heart failure and possibly also COPD as well. wean oxygen as appropriate. (2) Hypotension (arterial) Plan: The patient has significant hypotension. He is status post 2 liters of normal saline solution. We will try another 250 cc bolus to see if we can get back up to 100 where was. I would like to consult surgery to put in a central line as I think this patient may be headed towards pressor support. If these fluid boluses do not help we will start Levophed to keep his map greater than 65. Will check a random cortisol. Troponin initially is negative. Repeat 3. (3) CHF (congestive heart failure) Plan: Acute on chronic heart failure. The patient has no specific history of this according to him. But I suspect based on his medication list that he does. Echocardiogram shows an EF greater than 65%. This was done back in January 2016. It also showed severely dilated left atrium and moderately dilated right atrium. Mild mitral regurgitation and mild aortic stenosis was also present. Repeat echocardiogram. Given his issues with blood pressures going to be difficult to balance diuresis with need for fluid boluses. If we do have to begin a pressor, then we will see what kind of diuresis we can achieve at that point. All antihypertensives are are of course on hold in light of his hypotension. (4) Right lower lobe pneumonia Qualifiers: Pneumonia type: due to unspecified organism Qualified Code(s): J18.1 - Lobar pneumonia, unspecified organism Plan: Continue Levaquin. The patient was also given a dose of cefepime in the ER for double coverage of Pseudomonas (5) Diabetes mellitus Qualifiers: Diabetes mellitus type: type 2 Diabetes mellitus complication status: with neurologic complications Diabetes mellitus complication detail: with unspecified neuropathy Diabetes mellitus snf insulin use: without terminal make up operator use Qualified Code(s): 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 2 diabetes mellitus with diabetic neuropathy, unspecified (6) Atrial fibrillation Qualifiers: Atrial fibrillation type: chronic Qualified Code(s): I48.2 - Chronic atrial fibrillation Plan: Currently controlled. Antihypertensives on hold due to hypertension. - Time Critical Time spent with patient: 35 or more minutes - Inpatient Certification Based on my medical assessment, after consideration of the patient's comorbidities, presenting symptoms, or acuity I expect that the services needed warrant INPATIENT care.: Yes Medical Necessity: Need Close Monitoring Due to Risk of Patient Decompensation
[2016-10-17] MEDS ORDERED: DEXTROSE 5%-WATER 250 ML with PHENYLEPHRINE HCL 40 MG IV PRN ×2 (19:30)
--- NOTE | 2016-10-17 19:51 | PDOC CONSULTATION ---
Consultation Consult Date: 10/17/16 Attending physician:: DINESH LOWRY Consult reason:: Hypotension, troponin I elevation, non-STEMI History of Present Illness Admission Date/PCP: 10/17/16 15:57 DEEPTI RAMOSJUAN Patient complains of: Generalized weakness History of Present Illness: JENNIFER AGUILAR is a 86 year old white male with a past medical history significant for diabetes mellitus, previous stroke, A. fib, and hypertension who presents to the service with progressive shortness of breath. The patient denies a history of congestive heart failure and is usually seen at [facility]. In review of his medications he certainly is on medicines that would be consistent with a history of heart failure. In the emergency room the patient was noted to have an O2 sat of 78% on room air. He was started on bilevel Pap. Chest x-ray was done which showed a right lower lobe infiltrate and the patient happened to be febrile as well. BiPAP was initially started at 50% FiO2. Patient was able to be titrated down to 30% FiO2 with O2 sat of 98%. Unfortunately his blood pressure was low down in the emergency room. He was given a total of 2 L bolus down in the emergency room with return of his blood pressure to 100 systolic. At the time that I saw him his systolic blood pressure was back down to 92 and before I left the interview the patient's blood pressure was down to 88. This history by Dr. Petersen was reviewed. Subsequently more history obtained from the patient. He has noted some progressive pedal edema. Patient on repeated questioning denied any chest pain. She had noted some fever and chills. He has noted some cough but without any sputum production. He actually denied any prior history of myocardial infarction or any blockages. Patient claims that he lives by himself and makes his own medical decision. There were 2 friends in the room who also confirmed that patient is able to make his own decision. On asking patient about his CODE STATUS, he does want to be DNR and DNI and such order was written in the chart. The nurse also had obtained same information. Past Medical History Cardiac Medical History: Reports: Atrial Fibrillation, Hyperlipidema, Hypertension - MEDS Denies: Myocardial Infarction Pulmonary Medical History: Reports: Chronic Obstructive Pulmonary Disease (COPD) , Pneumonia Denies: Asthma Neurological Medical History: Denies: Seizures Endocrine Medical History: Reports: Diabetes Mellitus Type 2 GI Medical History: Reports: Hiatal Hernia Denies: Hepatitis Psychiatric Medical History: Reports: Depression Hematology: Reports: Anemia - ON IRON Denies: Sickle Cell Disease Past Surgical History Past Surgical History: Reports: Cardiac Catheterization - History of stent placement, Cholecystectomy, Herniorrhaphy Denies: Pacemaker Social History Information Source: Patient Lives with: Alone Smoking Status: Former Smoker - Patient quit in 1999. Frequency of Alcohol Use: None Hx Recreational Drug Use: No Drugs: None Hx Prescription Drug Abuse: No - Advance Directive Resuscitation Status: Do Not Resuscitate Surrogate healthcare decision maker:: Patient's daughter is the surrogate decision-maker but patient wishes to make his own decision unless incapacitated. Family History Family History: COPD Parental Family History Reviewed: Yes Children Family History Reviewed: Yes Sibling(s) Family History Reviewed.: Yes Medication/Allergy Home Medications: Acetaminophen [Tylenol Extra Strength 500 mg Tablet] 2 tab PO Q6HP PRN 10/17/16 Alprazolam [Xanax 0.5 mg Tablet] 0.5 mg PO Q6HP PRN 10/17/16 Aspirin [Aspirin EC] 81 mg PO DAILY 10/17/16 Atorvastatin Calcium [Lipitor 10 mg Tablet] 10 mg PO QHS 10/17/16 Cholecalciferol (Vitamin D3) [Vitamin D3 1000 Unit Tablet] 1,000 unit PO DAILY 10/17/16 Escitalopram Oxalate [Lexapro 10 mg Tablet] 10 mg PO DAILY 10/17/16 Furosemide [Lasix 40 mg Tablet] 40 mg PO DAILYP PRN 10/17/16 Glimepiride [Amaryl] 2 mg PO QAM 10/17/16 Isosorbide Mononitrate [Imdur 60 mg Tablet.er] 60 mg PO DAILY 10/17/16 Losartan Potassium [Cozaar 50 mg Tablet] 25 mg PO DAILY 10/17/16 Metoprolol Succinate [Toprol Xl 25 mg Tab.sr] 25 mg PO DAILY 10/17/16 Nitroglycerin [Nitrolingual] 1 applic SL Q5MP PRN 10/17/16 Omeprazole 40 mg PO QAM 10/17/16 Potassium Chloride [K-Tab ER] 20 meq PO DAILY 10/17/16 Tamsulosin HCl [Flomax 0.4 mg Cap.sr] 0.4 mg PO DAILY 10/17/16 Umeclidinium Brm/Vilanterol Tr [Anoro Ellipta 62.5-25 Mcg INH] 1 each IH DAILY 10/17/16 Allergies/Adverse Reactions: meperidine HCl [From Demerol] Allergy (Verified 10/17/16 13:08) HALLUCINATION morphine [Morphine] Allergy (Verified 10/17/16 13:08) HALLUCINATION albuterol Adverse Reaction (Mild, Verified 10/17/16 13:08) SORE THROAT Review of Systems Review of Systems: Please see history of present illness and past medical history as wall. Constitutional: Recent fever or chills reported. Head : No recent chronic headaches, recent head injury. Eyes: No recent eye pain, diplopia, redness, discharge, acute visual changes. Ears: No recent chronic ear pain, acute hearing loss, ear discharge. Oral cavity: No recent ulcerations, bleeding, oral cavity discomfort. Neck: No recent acute neck pain reported. Hematologic: No recent easy bruising or bleeding or hematologic malignancy reported. Lymphatic: No recent lymphatic malignancy, chronic lymphadenopathy reported yet Cardiovascular system review: See history of present illness. Respiratory system review: No recent chronic cough, hemoptysis, blood clots in the lungs reported. Mild Shortness of breath on exertion Gastrointestinal system review: Negative for any recent acute or chronic abdominal pain, hematemesis, melena, recent change in bowel habits. Patient has noted abdominal distention but claims that this is from hernia. Genitourinary system review: No recent acute or chronic hematuria, flank pain, UTI etc. reported. Skin system review: Negative for any recent abnormal bruising, no rash, no pruritus reported. Neurologic: Positive prior history of strokes, mini strokes, but no seizure disorder. Psychologic: No history of major psychosis or major depression reported. Musculoskeletal: Minor aches and pains reported. No acute joint swelling reported. Bilateral leg swelling noted. Endocrine: No recent polyuria, polydipsia, recent heat or cold intolerance. Physical Exam Vital Signs: Temp Pulse Resp BP Pulse Ox 98.1 F 92 22 H 90/51 L 98 10/17/16 16:09 10/17/16 18:00 10/17/16 18:00 10/17/16 18:00 10/17/16 18:00 Intake & Output 10/16/16 10/17/16 10/18/16 06:59 06:59 06:59 Intake Total 250 Output Total 75 Balance 175 Weight 93.6 kg Exam: GENERAL: well-nourished and in no acute distress. Alert and oriented x3 HEAD: Atraumatic, normocephalic. EYES: Pupils equal round and reactive to light, extraocular movements intact, sclera anicteric, conjunctiva are normal. ENT: TMs normal, nares patent, oropharynx clear without exudates. Moist mucous membranes. No oral ulcerations or bleeding gums noted NECK: supple without lymphadenopathy. Trachea is central. No cervical or axillary lymphadenopathy noted. Carotids are 2+, 8-10 cm WNL LUNGS: Respiration seems nonlabored, no significant accessory muscle action noted. Bibasilar fine crackles noted but no wheezing , rales or rhonchi noted. No significant dullness noted on percussion. CHEST: Palpation of the chest wall shows no significant chest wall tenderness. No other significant abnormalities noted. HEART: [place] [employer], No PSH, 2/6 MARIA DEL CARMEN aortic area, 1/6 robbins systolic murmur mitral area, no rubs, no gallops. ABDOMEN: Soft, no significant tenderness appreciated, normoactive bowel sounds. No guarding, no rebound. No rigidity noted . No masses appreciated. EXTREMITIES: Pedal pulses are 1-2+, no calf tenderness noted. No clubbing or cyanosis. 2+ pedal edema right, 1-2+ left with some weeping being noted. Possible cellulitis of both legs as they feel warm. NEUROLOGICAL: Focused neurological exam showed no significant neurologic deficit. Normal speech, no focal weakness appreciated. PSYCH: Normal mood, normal affect. Judgment and insight within normal limits. SKIN: No significant ecchymosis, rash, ulcerations or signs of pruritus noted. MUSCULOSKELETAL EXAM: No significant joint swelling noted. Results Laboratory Results: 10/17/16 17:32 Troponin I 0.685 EKG Comments: Atrial fibrillation and minor ST segment depression in lateral chest leads, heart rate well controlled Impressions: Chest X-Ray 10/17/16 12:12 IMPRESSION: 1. Cardiomegaly with no eliana CHF. 2. Possible early right lower lobe pneumonia. Status: Image reviewed by ca - Chest x-ray shows right lower lobe pneumonia, some infiltrate on the left side, no definite CHF but cardiomegaly noted. Assessment & Plan - Diagnosis (1) Non-STEMI (non-ST elevated myocardial infarction) Is this a current diagnosis for this admission?: Yes (2) Hypotension Qualifiers: Hypotension type: unspecified hypotension type Qualified Code(s): I95.9 - Hypotension, unspecified Is this a current diagnosis for this admission?: Yes (3) CHF (congestive heart failure) Qualifiers: Congestive heart failure type: unspecified congestive heart failure type Congestive heart failure chronicity: chronic Qualified Code(s): I50.9 - Heart failure, unspecified Is this a current diagnosis for this admission?: Yes (4) Hyperkalemia Is this a current diagnosis for this admission?: Yes (5) Right lower lobe pneumonia Qualifiers: Pneumonia type: due to unspecified organism Qualified Code(s): J18.1 - Lobar pneumonia, unspecified organism Is this a current diagnosis for this admission?: Yes (6) Diabetes mellitus Qualifiers: Diabetes mellitus type: type 2 Diabetes mellitus complication status: with neurologic complications Diabetes mellitus complication detail: with unspecified neuropathy Diabetes mellitus fdc insulin use: without vermin exterminator use Qualified Code(s): 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 2 diabetes mellitus with diabetic neuropathy, unspecified (8) Lymphedema of both lower extremities Is this a current diagnosis for this admission?: Yes (9) Atrial fibrillation Qualifiers: Atrial fibrillation type: chronic Qualified Code(s): I48.2 - Chronic atrial fibrillation (10) COPD (chronic obstructive pulmonary disease) Qualifiers: COPD type: unspecified COPD Qualified Code(s): J44.9 - Chronic obstructive pulmonary disease, unspecified Is this a current diagnosis for this admission?: Yes (11) Respiratory failure Qualifiers: Chronicity: acute on chronic Respiratory failure complication: hypoxia and hypercapnia Qualified Code(s): J96.21 - Acute and chronic respiratory failure with hypoxia; J96.22 - Acute and chronic respiratory failure with hypercapnia Is this a current diagnosis for this admission?: Yes - Notes Notes: Non-STEMI: Patient has positive EKG changes and also positive enzymes. Patient denies any chest pain but is diabetic. Will treat patient with anticoagulation , aspirin, statins. Have added Ranexa. Beta-blockers and ZABRINA inhibitor currently contraindicated because of hypotension. Overall prognosis is guarded because of hypotension. Hypotension: Multifactorial. Possible combination of volume depletion, cardiogenic, sepsis related. Continue supportive care. May start have ordered a stat echo. Patient may end up needing vasopressors. CHF: Patient gives chronic history of CHF. Currently seems rather euvolemic. Continue to observe. Hyperkalemia: Potassium is 5.2. Continue to observe. Right lower lobe pneumonia: This is based on chest x-ray review and symptoms of fever cough and dyspnea. Continue with antibiotic therapy. Diabetes: Avoid hypo-and hyperglycemia. Will leave management to distribution center administrator. Elevated troponin I: Most likely related to non-STEMI from supply demand mismatch but cannot rule out acute coronary syndrome. Lymphedema of the lower extremity: Patient most likely has some associated cellulitis. Continue antibiotic therapy. Atrial fibrillation: This is chronic. Rate is well controlled. COPD: Currently is stable to maintain oxygenation and ventilation. Patient had decided to be a DNR and DNI. Respiratory failure: Acute on chronic hypoxemic and also hypercarbic. Currently is stable. - Time Time Spent: 50 to 70 Minutes - CODE STATUS : was discussed, patient remains DO NOT RESUSCITATE. Surrogate decision-maker unchanged. Multiple medical problems were addressed. More than 50% of the time spent coordinating care, discussing management plans with involved caregivers. Management plans discussed with involved personnels. Medical decision making was of high complexity, patient's has multiple comorbidities. Medications reviewed and adjusted accordingly: Yes
[2016-10-17] MEDS ORDERED: RANOLAZINE 500 MG TAB.SR.12H PO ONE (20:00)
[2016-10-17 20:07] LABS: ARTERIAL BLOOD BASE EXCESS -6.2 mmol/L; ARTERIAL BLOOD O2 SATURATION 96.5 % (94-98)
[2016-10-17] MEDS ORDERED: ATORVASTATIN CALCIUM 10 MG TABLET PO SCH (22:00)
[2016-10-17] MEDS: ATORVASTATIN CALCIUM 40 MG TABLET PO SCH (22:43)
[2016-10-17] MEDS: ENOXAPARIN SODIUM INJ 100 MG/1 ML DISP.SYRIN SUBCUT SCH (22:43)
[2016-10-17] MEDS: RANOLAZINE 500 MG TAB.SR.12H PO SCH (22:44)
--- NOTE | 2016-10-17 23:28 | RADIOLOGY REPORT (SQ) ---
EXAM DESCRIPTION: VENOUS BILATERAL LOWER COMPLETED DATE/TIME: 10/17/2016 11:09 pm REASON FOR STUDY: asymm. leg edema COMPARISON: None. TECHNIQUE: Dynamic and static daniels scale and color images acquired of both lower extremity venous sy stems. Selected spectral images acquired with additional compression and augmentation maneuvers. Imag es stored on PACS. LIMITATIONS: None. FINDINGS: RIGHT LEG COMMON FEMORAL AND FEMORAL: Normal phasicity, compression and augmentation. No visualized echogenic m aterial on daniels scale. No defects on color images. POPLITEAL: Normal compression and augmentation. No visualized echogenic material on daniels scale. No de fects on color images. CALF VESSELS: Normal compression and augmentation. No visualized echogenic material on daniels scale. No defects on color image. GSV AND SSV: Normal compression. No visualized echogenic material on daniels scale. No defects on color images. ANY DEEP VENOUS INSUFFICIENCY: Not evaluated. ANY EVIDENCE OF POPLITEAL CYST: No. OTHER: No other significant finding. LEFT LEG COMMON FEMORAL AND FEMORAL: Normal phasicity, compression and augmentation. No visualized echogenic m aterial on daniels scale. No defects on color images. POPLITEAL: Normal compression and augmentation. No visualized echogenic material on daniels scale. No de fects on color images. CALF VESSELS: Normal compression and augmentation. No visualized echogenic material on daniels scale. No defects on color images. GSV AND SSV: Normal compression. No visualized echogenic material on daniels scale. No defects on color images. ANY DEEP VENOUS INSUFFICIENCY: Not evaluated. ANY EVIDENCE POPLITEAL CYST: No. OTHER: No other significant finding. IMPRESSION: NO EVIDENCE DVT OR SVT IN EITHER LEG. TECHNICAL DOCUMENTATION: JOB ID: [id number]- All Rights Reserved
[2016-10-17] MEDS ORDERED: CLOPIDOGREL BISULFATE 300 MG TABLET PO ONE (23:42)
--- NOTE | 2016-10-17 23:55 | XCELERA REPORT ---
[address] [address] Transthoracic Echocardiogram Report Name: JENNIFER AGUILAR Age: 86 yrs Gender: Male : 1930 Patient Status: Inpatient Patient Location: ICU^[id number]^A Study Date: 10/17/2016 10:15 PM Height: 67 in Weight: 206 lb BSA: 2.0 m2 Procedure: A complete two-dimensional transthoracic echocardiogram was performed (2D, M-mode, spectral and color flow Doppler). The study was technically difficult with many images being suboptimal in quality. Reason For Study: Hypotension Ordering Physician: VIOLA MARTÍNEZ Performed By: Geneva Robertson Interpretation Summary The study was technically difficult with many images being suboptimal in quality. Left ventricular systolic function is low normal. LV diastolic function could not be adequately assessed due to atrial fibrilation. There is mild concentric left ventricular hypertrophy. The left ventricle is grossly normal size. There is inferior wall mild hypokinesis The right ventricle appears to be hypertrophied The right ventricle is mild to moderately dilated. The right ventricular systolic function is normal. The left atrium is severely dilated. The right atrium is mildly dilated. There is no mitral valve stenosis. There is a mild amount of mitral regurgitation There is moderate aortic stenosis There is a peak gradient of 55, mean30 mm of Hg. There is a trace to mild amount of aortic regurgitation There is a mild to moderate amount of tricuspid regurgitation There is moderate to severe pulmonary hypertension by echo Right ventricular systolic pressure is estimated to be elevated at >60mmHg. The aortic root is not well visualized. The inferior vena cava appeared normal and decreased > 50% with respiration (RAP 5-10 mmHg) There is no pericardial effusion. MMode/2D Measurements & Calculations RVDd: 3.9 cm LVIDd: 5.0 cm FS: 32.9 % Ao root diam: IVSd: 1.0 cm LVIDs: 3.4 cm EDV(Teich): 3.5 cm LVPWd: 0.97 cm 119.8 ml Ao root area: ESV(Teich): 46.6 ml 9.6 cm2 EF(Teich): LA dimension: 61.1 % 5.6 cm LVOT diam: 2.5 cm LA A2Cs: LA A4Cs: LA length: 8.5 cm LVOT area: 5.0 cm2 33.7 cm2 40.1 cm2 LA Vol Index (BP): LA Volume: 135.0 ml 65.9 ml/m2 Doppler Measurements & Calculations MV E max isiah: MV P1/2t max isiah: Ao V2 max: LV V1 max P.6 cm/sec 180.8 cm/sec 387.6 cm/sec 2.1 mmHg MV A max isiah: MV P1/2t: 48.6 msec Ao max PG: LV V1 mean P.4 cm/sec MVA(P1/2t): 4.5 cm2 60.1 mmHg 1.2 mmHg MV E/A: 3.2 MV dec slope: Ao V2 mean: LV V1 max: 252.0 cm/sec 72.2 cm/sec 1089 cm/sec2 Ao mean PG: LV V1 mean: MV dec time: 31.7 mmHg 50.7 cm/sec 0.16 sec Ao V2 VTI: 83.0 cmLV V1 VTI: DILMA(I,D): 0.96 cm216.1 cm DILMA(V,D): 0.92 cm2 SV(LVOT): 79.6 ml PA V2 max: PI end-d isiah: TR max isiah: 119.9 cm/sec 180.5 cm/sec 386.9 cm/sec PA max P.8 mmHg TR max P.9 mmHg Left Ventricle The left ventricle is grossly normal size. There is mild concentric left ventricular hypertrophy. Left ventricular systolic function is low normal. LV diastolic function could not be adequately assessed due to atrial fibrilation. There is inferior wall mild hypokinesis. Right Ventricle The right ventricle is mild to moderately dilated. The right ventricle appears to be hypertrophied. The right ventricular systolic function is normal. Atria The right atrium is mildly dilated. The left atrium is severely dilated. Interarterial septum not well visualized and not well dopplered. Cannot comment on ASD/PFO presence. Mitral Valve There is moderate mitral annular calcification. There is no mitral valve stenosis. There is a mild amount of mitral regurgitation. Aortic Valve The aortic valve is moderately calcified. There is moderate aortic stenosis. There is a peak gradient of 55, mean30 mm of Hg. There is a trace to mild amount of aortic regurgitation. Tricuspid Valve The tricuspid valve is not well visualized, but is grossly normal. There is no tricuspid stenosis. There is a mild to moderate amount of tricuspid regurgitation. There is moderate to severe pulmonary hypertension by echo. Right ventricular systolic pressure is estimated to be elevated at >60mmHg. Pulmonic Valve The pulmonic valve is not well visualized. Great Vessels The aortic root is not well visualized. The inferior vena cava appeared normal and decreased > 50% with respiration (RAP 5-10 mmHg). Effusions There is no pericardial effusion. : VIOLA MARTÍNEZ > Viola Martínez
[2016-10-18 05:05] LABS: HEMATOCRIT 32.5 % (37.9-51.0); HEMOGLOBIN 10.6 g/dL (13.5-17.0); HGB HCT DIFFERENCE -0.7; MEAN CORPUSCULAR HEMOGLOBIN 30.8 pg (27.0-33.4); MEAN CORPUSCULAR HGB CONC 32.5 g/dL (32.0-36.0); MEAN CORPUSCULAR VOLUME 95 fl (80-97); RED BLOOD COUNT 3.43 10^6/uL (4.35-5.55); RED CELL DISTRIBUTION WIDTH 14.3 % (11.5-14.0); WHITE BLOOD COUNT 8.4 10^3/uL (4.0-10.5)
[2016-10-18 05:20] LABS: ANION GAP 6 (5-19); BLOOD UREA NITROGEN 28 mg/dL (7-20); CARBON DIOXIDE 23 mmol/L (22-30); CHLORIDE 110 mmol/L (98-107); CREATININE RESULT 1.03 mg/dL (0.52-1.25); GLUCOSE 181 mg/dL (75-110); MAGNESIUM 1.6 mg/dL (1.6-2.3); POTASSIUM 5.4 mmol/L (3.6-5.0); SODIUM 139.4 mmol/L (137-145)
[2016-10-18 05:27] LABS: BAND NEUTROPHILS % (MANUAL) 2 % (3-5); BASOPHILS % (MANUAL) 0 % (0-2); EOSINOPHILS % (MANUAL) 1 % (0-6); LYMPHOCYTES % (MANUAL) 4 % (13-45); TOTAL CELLS COUNTED 100
[2016-10-18 05:28] LABS: RBC MORPHOLOGY COMMENT NORMO-CYTIC/CHROMIC; TOXIC GRANULATION SLIGHT
--- NOTE | 2016-10-18 07:33 | EKG REPORT ---
SEVERITY:- ABNORMAL ECG - A-FIB/FLUTTER W/ PREDOM 3:1 AV BLOCK, A-RATE 224 CONSIDER ANTERIOR INFARCT : Confirmed by: Franko Sanchez MD 18-Oct-2016 07:32:42
--- NOTE | 2016-10-18 07:34 | EKG REPORT ---
SEVERITY:- ABNORMAL ECG - ATRIAL FIBRILLATION, V-RATE 58-90 BORDERLINE LEFT AXIS DEVIATION BORDERLINE ST DEPRESSION, LATERAL LEADS : Confirmed by: Franko Sanchez MD 18-Oct-2016 07:32:59
[2016-10-18] MEDS: IPRATROPIUM/ALBUTEROL 0.5-2.5 MG/3 ML AMPUL NEB SCH ×4 (08:35→20:53)
[2016-10-18] MEDS: ASPIRIN 81 MG TABLET, ENT COATED PO SCH (09:10)
[2016-10-18] MEDS: LANSOPRAZOLE 30 MG TAB.RAP.DR PO SCH (09:10)
[2016-10-18] MEDS: ENOXAPARIN SODIUM INJ 100 MG/1 ML DISP.SYRIN SUBCUT SCH ×2 (09:11→21:46)
[2016-10-18] MEDS: RANOLAZINE 500 MG TAB.SR.12H PO SCH ×2 (09:11→21:45)
[2016-10-18] MEDS ORDERED: ALPRAZOLAM 0.5 MG TABLET PO PRN (09:38)
[2016-10-18] MEDS ORDERED: ENOXAPARIN SODIUM INJ 40 MG/0.4 ML DISP.SYRIN SUBCUT SCH (10:00)
[2016-10-18] MEDS ORDERED: (PENDING PHARMACY ID) (Umeclidinium Brm/Vilanterol Tr [Anoro Ellipta 62.5-25 Mcg Inh] 1 EA IH SCH (10:00)
--- NOTE | 2016-10-18 10:50 | PDOC PROGRESS REPORT ---
Subjective Progress Note for:: 10/18/16 Subjective:: Pt states that he is doing ok. Pt states that he would like to having Tylenol order for his back pain. Pt states that the back is making his back pain worse. Physical Exam Vital Signs: Temp Pulse Resp BP Pulse Ox 98.0 F 74 22 H 106/50 L 100 10/18/16 08:00 10/18/16 08:34 10/18/16 08:34 10/18/16 08:00 10/18/16 08:34 Intake & Output 10/17/16 10/18/16 10/19/16 06:59 06:59 06:59 Intake Total 695 Output Total 455 45 Balance 240 -45 Weight 93.6 kg General appearance: PRESENT: no acute distress, well-developed, well-nourished Head exam: PRESENT: atraumatic, normocephalic Eye exam: PRESENT: conjunctiva pink, EOMI Mouth exam: PRESENT: neck supple Neck exam: PRESENT: full ROM Respiratory exam: PRESENT: clear to auscultation jeramy. ABSENT: rales, rhonchi, wheezes Cardiovascular exam: PRESENT: irregular rhythm, other - No lower ext edema GI/Abdominal exam: PRESENT: normal bowel sounds, soft. ABSENT: distended, guarding, mass, organolmegaly, rebound, tenderness Extremities exam: PRESENT: full ROM, other - + scoliosis Musculoskeletal exam: PRESENT: full ROM, other - scoliosis Neurological exam: PRESENT: alert, oriented to person, oriented to place, oriented to time Skin exam: PRESENT: dry, warm Results Laboratory Results: 10/18/16 04:58 10/18/16 04:58 10/17/16 10/18/16 10/18/16 19:53 04:58 04:58 WBC 8.4 RBC 3.43 L Hgb 10.6 L Hct 32.5 L MCV 95 MCH 30.8 MCHC 32.5 RDW 14.3 H Plt Count 121 L Seg Neutrophils % Not Reportable Lymphocytes % Not Reportable Monocytes % Not Reportable Eosinophils % Not Reportable Basophils % Not Reportable Absolute Neutrophils Not Reportable Absolute Lymphocytes Not Reportable Absolute Monocytes Not Reportable Absolute Eosinophils Not Reportable Absolute Basophils Not Reportable Carbonic Acid 1.17 HCO3/H2CO3 Ratio 16:1 ABG pH 7.32 L ABG pCO2 39.0 ABG pO2 93.0 ABG HCO3 19.4 L ABG O2 Saturation 96.5 ABG Base Excess -6.2 FiO2 36% Sodium 139.4 Potassium 5.4 H Chloride 110 H Carbon Dioxide 23 Anion Gap 6 BUN 28 H Creatinine 1.03 Est GFR ( Amer) > 60 Est GFR (Non-Af Amer) > 60 Glucose 181 H Calcium 8.0 L Magnesium 1.6 10/17/16 10/17/16 10/18/16 17:32 22:48 04:58 Troponin I 0.685 9.200 19.400 Impressions: Venous Doppler Study 10/17/16 00:00 IMPRESSION: NO EVIDENCE DVT OR SVT IN EITHER LEG. Chest X-Ray 10/17/16 12:12 IMPRESSION: 1. Cardiomegaly with no eliana CHF. 2. Possible early right lower lobe pneumonia. Assessment & Plan - Diagnosis (1) Sepsis Qualifiers: Sepsis type: sepsis due to unspecified organism Qualified Code(s): A41.9 - Sepsis, unspecified organism Is this a current diagnosis for this admission?: Yes Plan: Secondary to Gram Neg Rods: Will continue Zosyn. (2) Acute hypercapnic respiratory failure Is this a current diagnosis for this admission?: Yes Plan: Secondary to Sepsis: Resolved. Pt doing well. (3) Hypotension Qualifiers: Hypotension type: unspecified hypotension type Qualified Code(s): I95.9 - Hypotension, unspecified Is this a current diagnosis for this admission?: Yes Plan: Secondary to Sepsis: Pt given IVFs. Blood pressure improved. (4) Hyperkalemia Is this a current diagnosis for this admission?: Yes Plan: Will monitor. CMP in am. (5) Non-STEMI (non-ST elevated myocardial infarction) Is this a current diagnosis for this admission?: Yes Plan: Secondary to Demand Ischemia: Pt current on anticoagulation and statin. Pt hypotensive therefore not able to have ZABRINA/ARB or beta gay currently. (6) Right lower lobe pneumonia Qualifiers: Pneumonia type: due to unspecified organism Qualified Code(s): J18.1 - Lobar pneumonia, unspecified organism Is this a current diagnosis for this admission?: Yes Plan: Will continue Zosyn. Will monitor pt's progress. (7) Pulmonary hypertension Is this a current diagnosis for this admission?: Yes Plan: Will monitor. Pt currently Septic. (8) Atrial fibrillation Qualifiers: Atrial fibrillation type: chronic Qualified Code(s): I48.2 - Chronic atrial fibrillation Is this a current diagnosis for this admission?: Yes Plan: Pt not on anticoagulation at home. Will speak to family members about anticoagulation. Pt currrently on Lovenox. (9) CHF (congestive heart failure) Qualifiers: Congestive heart failure type: unspecified congestive heart failure type Congestive heart failure chronicity: chronic Qualified Code(s): I50.9 - Heart failure, unspecified Is this a current diagnosis for this admission?: Yes Plan: History of Diastolic CHF: Pt currently Hypotensive. Will continue IVF. - Time Time Spent with patient: 25-34 minutes Medications reviewed and adjusted accordingly: Yes
[2016-10-18] MEDS ORDERED: NITROGLYCERIN SL PRN (10:58)
[2016-10-18] MEDS ORDERED: (PENDING PHARMACY ID) (Acetaminophen [Tylenol Extra Strength 500 Mg Tablet] 2 TAB) PO PRN (10:58)
[2016-10-18] MEDS ORDERED: NORMAL SALINE 1000 ML 1,000 ML IV SCH (11:00)
[2016-10-18] MEDS: PIPERACILLIN SODIUM/TAZOBACTAM 3.375 GM in NORMAL SALINE 100 ML IV SCH ×3 (12:50→23:16)
--- NOTE | 2016-10-18 15:45 | PDOC PROGRESS REPORT ---
Subjective Progress Note for:: 10/18/16 Subjective:: Patient seems to be doing better with gradual improvement. Pt is denying any chest arm or neck discomfort. Patient denying any PND, orthopnea. Patient denied any sustained palpitations, dizziness, syncope, near syncope. Patient denying any fever chills. Patient denying any other significant discomfort. Patient is maintaining chronic atrial fibrillation with controlled heart rate. Review of systems: Rest review of systems negative. Medications: Medications have been reviewed. Physical Exam Vital Signs: Temp Pulse Resp BP Pulse Ox 97.8 F 82 20 112/53 L 99 10/18/16 14:00 10/18/16 14:00 10/18/16 14:00 10/18/16 14:00 10/18/16 14:00 Intake & Output 10/17/16 10/18/16 10/19/16 06:59 06:59 06:59 Intake Total 695 550 Output Total 455 260 Balance 240 290 Weight 93.6 kg Exam: GENERAL: well-nourished and in no acute distress. Alert and oriented x3 HEAD: Atraumatic, normocephalic. EYES: Pupils equal round and reactive to light, extraocular movements intact, sclera anicteric, conjunctiva are normal. ENT: TMs normal, nares patent, oropharynx clear without exudates. Moist mucous membranes. No oral ulcerations or bleeding gums noted NECK: supple without lymphadenopathy. Trachea is central. No cervical or axillary lymphadenopathy noted. Carotids are 2+, 8-10 cm WNL LUNGS: Respiration seems nonlabored, no significant accessory muscle action noted. Bibasilar fine crackles noted but no wheezing , rales or rhonchi noted. No significant dullness noted on percussion. CHEST: Palpation of the chest wall shows no significant chest wall tenderness. No other significant abnormalities noted. 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 ABDOMEN: Soft, no significant tenderness appreciated, normoactive bowel sounds. No guarding, no rebound. No rigidity noted . No masses appreciated. EXTREMITIES: Pedal pulses are 1-2+, no calf tenderness noted. No clubbing or cyanosis. 2+ pedal edema right, 1-2+ left with some weeping being noted. Possible cellulitis of both legs as they feel warm. NEUROLOGICAL: Focused neurological exam showed no significant neurologic deficit. Normal speech, no focal weakness appreciated. PSYCH: Normal mood, normal affect. Judgment and insight within normal limits. SKIN: No significant ecchymosis, rash, ulcerations or signs of pruritus noted. MUSCULOSKELETAL EXAM: No significant joint swelling noted. Results Laboratory Results: 10/18/16 04:58 10/18/16 04:58 10/17/16 10/18/16 10/18/16 19:53 04:58 04:58 WBC 8.4 RBC 3.43 L Hgb 10.6 L Hct 32.5 L MCV 95 MCH 30.8 MCHC 32.5 RDW 14.3 H Plt Count 121 L Seg Neutrophils % Not Reportable Lymphocytes % Not Reportable Monocytes % Not Reportable Eosinophils % Not Reportable Basophils % Not Reportable Absolute Neutrophils Not Reportable Absolute Lymphocytes Not Reportable Absolute Monocytes Not Reportable Absolute Eosinophils Not Reportable Absolute Basophils Not Reportable Carbonic Acid 1.17 HCO3/H2CO3 Ratio 16:1 ABG pH 7.32 L ABG pCO2 39.0 ABG pO2 93.0 ABG HCO3 19.4 L ABG O2 Saturation 96.5 ABG Base Excess -6.2 FiO2 36% Sodium 139.4 Potassium 5.4 H Chloride 110 H Carbon Dioxide 23 Anion Gap 6 BUN 28 H Creatinine 1.03 Est GFR ( Amer) > 60 Est GFR (Non-Af Amer) > 60 Glucose 181 H Calcium 8.0 L Magnesium 1.6 10/17/16 10/17/16 10/18/16 17:32 22:48 04:58 Troponin I 0.685 9.200 19.400 EKG Comments: Twelve-lead EKG is reviewed. Last night EKG had shown minimal ST elevation of 0.5 mmin lead v1,v2 Patient remains in atrial fibrillation. Today's EKG is very similar but improved in that ST segment elevation is barely noticeable in V1 and V2. Impressions: Venous Doppler Study 10/17/16 00:00 IMPRESSION: NO EVIDENCE DVT OR SVT IN EITHER LEG. Chest X-Ray 10/17/16 12:12 IMPRESSION: 1. Cardiomegaly with no eliana CHF. 2. Possible early right lower lobe pneumonia. Assessment & Plan - Diagnosis (1) Non-STEMI (non-ST elevated myocardial infarction) Is this a current diagnosis for this admission?: Yes (2) Hypotension Qualifiers: Hypotension type: unspecified hypotension type Qualified Code(s): I95.9 - Hypotension, unspecified Is this a current diagnosis for this admission?: Yes (3) CHF (congestive heart failure) Qualifiers: Congestive heart failure type: diastolic Congestive heart failure chronicity: acute on chronic Qualified Code(s): I50.33 - Acute on chronic diastolic (congestive) heart failure Is this a current diagnosis for this admission?: Yes (4) Hyperkalemia Is this a current diagnosis for this admission?: Yes (5) Right lower lobe pneumonia Qualifiers: Pneumonia type: due to unspecified organism Qualified Code(s): J18.1 - Lobar pneumonia, unspecified organism Is this a current diagnosis for this admission?: Yes (6) Diabetes mellitus Qualifiers: Diabetes mellitus type: type 2 Diabetes mellitus complication status: with neurologic complications Diabetes mellitus complication detail: with unspecified neuropathy Diabetes mellitus [facility] insulin use: without predatory animal exterminator use Qualified Code(s): 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 2 diabetes mellitus with diabetic neuropathy, unspecified (8) Lymphedema of both lower extremities Is this a current diagnosis for this admission?: Yes (9) Atrial fibrillation Qualifiers: Atrial fibrillation type: chronic Qualified Code(s): I48.2 - Chronic atrial fibrillation Is this a current diagnosis for this admission?: Yes (10) COPD (chronic obstructive pulmonary disease) Qualifiers: COPD type: unspecified COPD Qualified Code(s): J44.9 - Chronic obstructive pulmonary disease, unspecified Is this a current diagnosis for this admission?: Yes (11) Respiratory failure Qualifiers: Chronicity: acute on chronic Respiratory failure complication: hypoxia and hypercapnia Qualified Code(s): J96.21 - Acute and chronic respiratory failure with hypoxia; J96.22 - Acute and chronic respiratory failure with hypercapnia Is this a current diagnosis for this admission?: Yes - Notes Notes: Non-STEMI: Patient has positive EKG changes and also positive enzymes. Patient denies any chest pain but is diabetic. Will treat patient with anticoagulation , aspirin, statins. Have added Ranexa. Beta-blockers and ZABRINA inhibitor currently contraindicated because of hypotension. Patient was also placed on Plavix therefore currently on dual antiplatelet therapy. His troponin I has bumped but in view of normal LVEF, feel medical management would be a viable option with wishes and comorbid diagnosis. However if patient showed significant deterioration or starts to have active angina then will consider transfer to tertiary care for heart catheterization. Hypotension: Multifactorial. Possible combination of volume depletion, cardiogenic, sepsis related. Continue supportive care. 2D echo shows relatively well-preserved LVEF. Hypotension has improved. CHF: Patient gives chronic history of CHF. Currently seems slightly hypervolemic. Continue to observe. Consider IV diuretics. Hyperkalemia: Continue to observe. Right lower lobe pneumonia: This is based on chest x-ray review and symptoms of fever cough and dyspnea. Continue with antibiotic therapy. Diabetes: Avoid hypo-and hyperglycemia. Will leave management to historiography teacher. Elevated troponin I: It is now felt to be related to non-STEMI. 2D echo does show inferior wall motion abnormalities. Medical management is being considered at this point. Lymphedema of the lower extremity: Patient most likely has some associated cellulitis. Continue antibiotic therapy. Atrial fibrillation: This is chronic. Rate is well controlled. COPD: Currently is stable to maintain oxygenation and ventilation. Patient had decided to be a DNR and DNI. Respiratory failure: Acute on chronic hypoxemic and also hypercarbic. Currently is stable. - Time Time with patient: Greater than 35 minutes - CODE STATUS was discussed, patient remains DNR, DNI. Surrogate decision-maker unchanged. Multiple medical problems were addressed. More than 50% of the time spent coordinating care, discussing management plans with involved caregivers. Management plans discussed with involved personnels. Medical decision making was of moderate to high complexity, patient's has multiple comorbidities. Medications reviewed and adjusted accordingly: Yes
[2016-10-18] MEDS: ACETAMINOPHEN 325 MG TABLET PO PRN (17:34)
[2016-10-18] MEDS: ATORVASTATIN CALCIUM 40 MG TABLET PO SCH (21:45)
[2016-10-18] MEDS: CARVEDILOL 3.125 MG TABLET PO SCH (21:45)
[2016-10-19] MEDS: ACETAMINOPHEN 325 MG TABLET PO PRN ×2 (00:33→16:12)
[2016-10-19] MEDS: ALPRAZOLAM 0.5 MG TABLET PO PRN ×2 (00:33→16:12)
[2016-10-19] MEDS: PIPERACILLIN SODIUM/TAZOBACTAM 3.375 GM in NORMAL SALINE 100 ML IV SCH ×3 (06:09→17:39)
[2016-10-19 06:11] LABS: ABSOLUTE LYMPHOCYTES (AUTO) 0.8 10^3/uL (0.5-4.7); ABSOLUTE MONOCYTES (AUTO) 0.7 10^3/uL (0.1-1.4); ABSOLUTE NEUT (AUTO) 6.5 10^3/uL (1.7-8.2); BASOPHILS % (AUTO) 0.1 % (0-2); EOSINOPHILS % (AUTO) 0.2 % (0-6); HEMATOCRIT 32.7 % (37.9-51.0); HEMOGLOBIN 10.9 g/dL (13.5-17.0); LYMPHOCYTES % (AUTO) 10.1 % (13-45); MEAN CORPUSCULAR HEMOGLOBIN 31.2 pg (27.0-33.4); MEAN CORPUSCULAR HGB CONC 33.4 g/dL (32.0-36.0); MEAN CORPUSCULAR VOLUME 94 fl (80-97); MONOCYTES % (AUTO) 8.9 % (3-13); RED CELL DISTRIBUTION WIDTH 14.7 % (11.5-14.0); SEGMENTED NEUTROPHILS % (AUTO) 80.7 % (42-78)
[2016-10-19 06:32] LABS: ANION GAP 7 (5-19); BLOOD UREA NITROGEN 33 mg/dL (7-20); CARBON DIOXIDE 23 mmol/L (22-30); CHLORIDE 110 mmol/L (98-107); CREATININE RESULT 1.18 mg/dL (0.52-1.25); GLUCOSE 92 mg/dL (75-110); MAGNESIUM 1.8 mg/dL (1.6-2.3); POTASSIUM 4.6 mmol/L (3.6-5.0); SODIUM 140.2 mmol/L (137-145)
[2016-10-19] MEDS: LANSOPRAZOLE 30 MG TAB.RAP.DR PO SCH (07:32)
[2016-10-19] MEDS: IPRATROPIUM/ALBUTEROL 0.5-2.5 MG/3 ML AMPUL NEB SCH ×4 (08:03→20:24)
[2016-10-19] MEDS ORDERED: FUROSEMIDE INJ/PF 40 MG/4 ML SDV IV ONE (09:30)
[2016-10-19] MEDS: ASPIRIN 81 MG TABLET, ENT COATED PO SCH (09:46)
[2016-10-19] MEDS: CARVEDILOL 3.125 MG TABLET PO SCH ×2 (09:46→21:57)
[2016-10-19] MEDS: ENOXAPARIN SODIUM INJ 100 MG/1 ML DISP.SYRIN SUBCUT SCH ×2 (09:47→23:32)
[2016-10-19] MEDS: RANOLAZINE 500 MG TAB.SR.12H PO SCH ×2 (09:47→21:57)
--- NOTE | 2016-10-19 12:23 | PDOC PROGRESS REPORT ---
Subjective Progress Note for:: 10/19/16 Subjective:: Pt states that he is short of breath this morning. Pt was seen around 8:15 am. Nursing was given order for IV Lasix. Nursing just informed me that pt has had out 2000 cc of urine. Nursing states that pt breathing has improved. Physical Exam Vital Signs: Temp Pulse Resp BP Pulse Ox 98.5 F 75 18 134/66 H 99 10/19/16 08:05 10/19/16 12:11 10/19/16 12:11 10/19/16 08:05 10/19/16 12:11 Intake & Output 10/18/16 10/19/16 10/20/16 06:59 06:59 06:59 Intake Total 695 2598 Output Total 455 1760 Balance 240 838 Weight 93.6 kg 100.1 kg General appearance: PRESENT: mild distress, well-developed, well-nourished Head exam: PRESENT: atraumatic, normocephalic Eye exam: PRESENT: conjunctiva pink, EOMI Ear exam: PRESENT: normal external ear exam Mouth exam: PRESENT: moist Respiratory exam: PRESENT: accessory muscle use, crackles, wheezes Cardiovascular exam: PRESENT: irregular rhythm, other - + 2 pitting lower ext edema bilaterally. Vascular exam: PRESENT: normal capillary refill GI/Abdominal exam: PRESENT: normal bowel sounds, soft. ABSENT: distended, guarding, mass, organolmegaly, rebound, tenderness Extremities exam: PRESENT: +2 edema - lower ext Neurological exam: PRESENT: alert, awake, oriented to person, oriented to place , oriented to time, oriented to situation, CN II-XII grossly intact. ABSENT: motor sensory deficit Psychiatric exam: PRESENT: appropriate affect, normal mood. ABSENT: homicidal ideation, suicidal ideation Skin exam: PRESENT: dry, warm Results Laboratory Results: 10/19/16 05:35 10/19/16 05:35 10/19/16 10/19/16 05:35 05:35 WBC 8.0 RBC 3.50 L Hgb 10.9 L Hct 32.7 L MCV 94 MCH 31.2 MCHC 33.4 RDW 14.7 H Plt Count 141 L Seg Neutrophils % 80.7 H Lymphocytes % 10.1 L Monocytes % 8.9 Eosinophils % 0.2 Basophils % 0.1 Absolute Neutrophils 6.5 Absolute Lymphocytes 0.8 Absolute Monocytes 0.7 Absolute Eosinophils 0.0 Absolute Basophils 0.0 Sodium 140.2 Potassium 4.6 Chloride 110 H Carbon Dioxide 23 Anion Gap 7 BUN 33 H Creatinine 1.18 Est GFR ( Amer) > 60 Est GFR (Non-Af Amer) 59 L Glucose 92 Calcium 8.0 L Magnesium 1.8 10/17/16 10/17/16 10/18/16 17:32 22:48 04:58 Troponin I 0.685 9.200 19.400 Impressions: Venous Doppler Study 10/17/16 00:00 IMPRESSION: NO EVIDENCE DVT OR SVT IN EITHER LEG. Chest X-Ray 10/17/16 12:12 IMPRESSION: 1. Cardiomegaly with no eliana CHF. 2. Possible early right lower lobe pneumonia. Assessment & Plan - Diagnosis (1) Sepsis Qualifiers: Sepsis type: sepsis due to unspecified organism Qualified Code(s): A41.9 - Sepsis, unspecified organism Is this a current diagnosis for this admission?: Yes Plan: Secondary to Gram Neg Rods: Will continue Zosyn. (2) Acute hypercapnic respiratory failure Is this a current diagnosis for this admission?: Yes Plan: Secondary to Sepsis: Resolved. Pt doing well. (3) CHF (congestive heart failure) Qualifiers: Congestive heart failure type: diastolic Congestive heart failure chronicity: acute on chronic Qualified Code(s): I50.33 - Acute on chronic diastolic (congestive) heart failure Is this a current diagnosis for this admission?: Yes Plan: Secondary to Volume expansion in setting Sepsis: Pt written for 40 mg of IV Lasix X 1 this morning. . Pt has produced 2 liters of Urine. Nursing states that her breathing has improved. (4) Hypotension Qualifiers: Hypotension type: unspecified hypotension type Qualified Code(s): I95.9 - Hypotension, unspecified Is this a current diagnosis for this admission?: Yes Plan: Secondary to Sepsis: Resolved. (5) Hyperkalemia Is this a current diagnosis for this admission?: Yes Plan: Resolved. (6) Non-STEMI (non-ST elevated myocardial infarction) Is this a current diagnosis for this admission?: Yes Plan: Secondary to Demand Ischemia: Pt current on anticoagulation and statin. Pt on Coreg and will start low dose shane tomorrow. (7) Right lower lobe pneumonia Qualifiers: Pneumonia type: due to unspecified organism Qualified Code(s): J18.1 - Lobar pneumonia, unspecified organism Is this a current diagnosis for this admission?: Yes Plan: Will continue Zosyn. Will monitor pt's progress. (8) Pulmonary hypertension Is this a current diagnosis for this admission?: Yes Plan: Pt give Lasix this morning. (9) Atrial fibrillation Qualifiers: Atrial fibrillation type: chronic Qualified Code(s): I48.2 - Chronic atrial fibrillation Is this a current diagnosis for this admission?: Yes Plan: Pt not on anticoagulation at home. Will speak to family members about anticoagulation. Pt currrently on Lovenox. - Time Time Spent with patient: 15-24 minutes
--- NOTE | 2016-10-19 13:15 | PDOC PROGRESS REPORT ---
Subjective Progress Note for:: 10/19/16 Subjective:: Patient seems to be doing better with gradual improvement. Pt is denying any chest arm or neck discomfort. Patient was noted to have shortness of breath this morning which responded to IV Lasix. Patient had good urine output. Currently more comfortable. Patient still has some chronic pedal edema and lymphedema. Patient is maintaining chronic atrial fibrillation with controlled heart rate. Review of systems: Rest review of systems negative. Medications: Medications have been reviewed. Physical Exam Vital Signs: Temp Pulse Resp BP Pulse Ox 97.6 F 75 18 126/80 H 99 10/19/16 11:46 10/19/16 12:11 10/19/16 12:11 10/19/16 11:46 10/19/16 12:11 Intake & Output 10/18/16 10/19/16 10/20/16 06:59 06:59 06:59 Intake Total 695 2598 600 Output Total 455 1760 2000 Balance 240 838 -1400 Weight 93.6 kg 100.1 kg Exam: GENERAL: well-nourished and in no acute distress. Alert and oriented x3 HEAD: Atraumatic, normocephalic. EYES: Pupils equal round and reactive to light, extraocular movements intact, sclera anicteric, conjunctiva are normal. ENT: TMs normal, nares patent, oropharynx clear without exudates. Moist mucous membranes. No oral ulcerations or bleeding gums noted NECK: supple without lymphadenopathy. Trachea is central. No cervical or axillary lymphadenopathy noted. Carotids are 2+, 10 cm WNL LUNGS: Respiration seems nonlabored, no significant accessory muscle action noted. Bibasilar fine crackles noted but no wheezing , rales or rhonchi noted. No significant dullness noted on percussion. CHEST: Palpation of the chest wall shows no significant chest wall tenderness. No other significant abnormalities noted. 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 ABDOMEN: Soft, no significant tenderness appreciated, normoactive bowel sounds. No guarding, no rebound. No rigidity noted . No masses appreciated. EXTREMITIES: Pedal pulses are 1-2+, no calf tenderness noted. No clubbing or cyanosis. 2+ pedal edema right, 1-2+ left being noted. Possible cellulitis of both legs as they feel warm. NEUROLOGICAL: Focused neurological exam showed no significant neurologic deficit. Normal speech, no focal weakness appreciated. PSYCH: Normal mood, normal affect. Judgment and insight within normal limits. SKIN: No significant ecchymosis, rash, ulcerations or signs of pruritus noted. MUSCULOSKELETAL EXAM: No significant joint swelling noted. Results Laboratory Results: 10/19/16 05:35 10/19/16 05:35 10/19/16 10/19/16 05:35 05:35 WBC 8.0 RBC 3.50 L Hgb 10.9 L Hct 32.7 L MCV 94 MCH 31.2 MCHC 33.4 RDW 14.7 H Plt Count 141 L Seg Neutrophils % 80.7 H Lymphocytes % 10.1 L Monocytes % 8.9 Eosinophils % 0.2 Basophils % 0.1 Absolute Neutrophils 6.5 Absolute Lymphocytes 0.8 Absolute Monocytes 0.7 Absolute Eosinophils 0.0 Absolute Basophils 0.0 Sodium 140.2 Potassium 4.6 Chloride 110 H Carbon Dioxide 23 Anion Gap 7 BUN 33 H Creatinine 1.18 Est GFR ( Amer) > 60 Est GFR (Non-Af Amer) 59 L Glucose 92 Calcium 8.0 L Magnesium 1.8 10/17/16 10/17/16 10/18/16 17:32 22:48 04:58 Troponin I 0.685 9.200 19.400 EKG Comments: Telemetry strip shows atrial fibrillation with controlled ventricular response Impressions: Venous Doppler Study 10/17/16 00:00 IMPRESSION: NO EVIDENCE DVT OR SVT IN EITHER LEG. Chest X-Ray 10/17/16 12:12 IMPRESSION: 1. Cardiomegaly with no eliana CHF. 2. Possible early right lower lobe pneumonia. Assessment & Plan - Diagnosis (1) Non-STEMI (non-ST elevated myocardial infarction) Is this a current diagnosis for this admission?: Yes (2) Hypotension Qualifiers: Hypotension type: unspecified hypotension type Qualified Code(s): I95.9 - Hypotension, unspecified Is this a current diagnosis for this admission?: Yes (3) CHF (congestive heart failure) Qualifiers: Congestive heart failure type: diastolic Congestive heart failure chronicity: acute on chronic Qualified Code(s): I50.33 - Acute on chronic diastolic (congestive) heart failure Is this a current diagnosis for this admission?: Yes (4) Hyperkalemia Is this a current diagnosis for this admission?: Yes (5) Right lower lobe pneumonia Qualifiers: Pneumonia type: due to unspecified organism Qualified Code(s): J18.1 - Lobar pneumonia, unspecified organism Is this a current diagnosis for this admission?: Yes (6) Diabetes mellitus Qualifiers: Diabetes mellitus type: type 2 Diabetes mellitus complication status: with neurologic complications Diabetes mellitus complication detail: with unspecified neuropathy Diabetes mellitus halfway insulin use: without halfway use Qualified Code(s): 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 2 diabetes mellitus with diabetic neuropathy, unspecified (8) Lymphedema of both lower extremities Is this a current diagnosis for this admission?: Yes (9) Atrial fibrillation Qualifiers: Atrial fibrillation type: chronic Qualified Code(s): I48.2 - Chronic atrial fibrillation Is this a current diagnosis for this admission?: Yes (10) COPD (chronic obstructive pulmonary disease) Qualifiers: COPD type: unspecified COPD Qualified Code(s): J44.9 - Chronic obstructive pulmonary disease, unspecified Is this a current diagnosis for this admission?: Yes (11) Respiratory failure Qualifiers: Chronicity: acute on chronic Respiratory failure complication: hypoxia and hypercapnia Qualified Code(s): J96.21 - Acute and chronic respiratory failure with hypoxia; J96.22 - Acute and chronic respiratory failure with hypercapnia Is this a current diagnosis for this admission?: Yes - Notes Notes: Non-STEMI: Patient has positive EKG changes and also positive enzymes. Patient denies any chest pain but is diabetic. Will treat patient with anticoagulation , aspirin, statins. Have added Ranexa. Beta-blockers and ZABRINA inhibitor currently contraindicated because of hypotension. Patient was also placed on Plavix therefore currently on dual antiplatelet therapy. His troponin I has bumped but in view of normal LVEF, feel medical management would be a viable option with wishes and comorbid diagnosis. However if patient showed significant deterioration or starts to have active angina then will consider transfer to tertiary care for heart catheterization. Hypotension: Multifactorial. Possible combination of volume depletion, cardiogenic, sepsis related. Continue supportive care. 2D echo shows relatively well-preserved LVEF. Hypotension has improved. CHF: Patient gives chronic history of CHF. Seems to be fluid overloaded. Agree with IV Lasix.. Hyperkalemia: Potassium today in normal range, continue to observe. Right lower lobe pneumonia: This is based on chest x-ray review and symptoms of fever cough and dyspnea. Continue with antibiotic therapy. Diabetes: Avoid hypo-and hyperglycemia. Will leave management to advance scout. Elevated troponin I: It is now felt to be related to non-STEMI. 2D echo does show inferior wall motion abnormalities. Medical management is being considered at this point. Lymphedema of the lower extremity: Currently is stable, associated cellulitis seems improved. Atrial fibrillation: This is chronic. Rate is well controlled. Continue chronic anticoagulation with Coumadin COPD: Currently is stable to maintain oxygenation and ventilation. Patient had decided to be a DNR and DNI. Continue bronchodilator therapy and other therapy. Respiratory failure: Acute on chronic hypoxemic and also hypercarbic. Currently is stable. - Time Time with patient: Greater than 35 minutes - CODE STATUS : was discussed, patient remains DO NOT RESUSCITATE. Surrogate decision-maker unchanged. Multiple medical problems were addressed. More than 50% of the time spent coordinating care, discussing management plans with involved caregivers. Management plans discussed with involved personnels. Medical decision making was of high complexity, patient's has multiple comorbidities. Dr. Cheko Arias to follow from tomorrow.
[2016-10-19] MEDS: FUROSEMIDE INJ/PF 20 MG/2 ML SDV IV SCH (21:56)
[2016-10-19] MEDS: ATORVASTATIN CALCIUM 40 MG TABLET PO SCH (21:57)
[2016-10-20] MEDS: PIPERACILLIN SODIUM/TAZOBACTAM 3.375 GM in NORMAL SALINE 100 ML IV SCH ×2 (00:01→05:42)
[2016-10-20] MEDS: ACETAMINOPHEN 325 MG TABLET PO PRN ×2 (01:14→22:10)
[2016-10-20] MEDS: ALPRAZOLAM 0.5 MG TABLET PO PRN ×2 (01:14→22:11)
[2016-10-20 06:10] LABS: ABSOLUTE EOSINOPHILS # (AUTO) 0.2 10^3/uL (0.0-0.6); ABSOLUTE MONOCYTES (AUTO) 0.6 10^3/uL (0.1-1.4); ABSOLUTE NEUT (AUTO) 3.5 10^3/uL (1.7-8.2); BASOPHILS % (AUTO) 0.4 % (0-2); EOSINOPHILS % (AUTO) 3.6 % (0-6); HEMATOCRIT 32.1 % (37.9-51.0); HEMOGLOBIN 10.6 g/dL (13.5-17.0); HGB HCT DIFFERENCE -0.3; LYMPHOCYTES % (AUTO) 18.6 % (13-45); MEAN CORPUSCULAR VOLUME 94 fl (80-97); RED BLOOD COUNT 3.42 10^6/uL (4.35-5.55); RED CELL DISTRIBUTION WIDTH 14.6 % (11.5-14.0); SEGMENTED NEUTROPHILS % (AUTO) 66.4 % (42-78); WHITE BLOOD COUNT 5.2 10^3/uL (4.0-10.5)
[2016-10-20 06:27] LABS: ANION GAP 6 (5-19); BLOOD UREA NITROGEN 33 mg/dL (7-20); CALCIUM 8.3 mg/dL (8.4-10.2); CARBON DIOXIDE 29 mmol/L (22-30); CHLORIDE 106 mmol/L (98-107); CREATININE RESULT 1.14 mg/dL (0.52-1.25); GLUCOSE 93 mg/dL (75-110); MAGNESIUM 1.7 mg/dL (1.6-2.3); POTASSIUM 4.4 mmol/L (3.6-5.0); SODIUM 141.2 mmol/L (137-145)
[2016-10-20 06:59] LABS: APPEARANCE,URINE CLEAR; BILIRUBIN,URINE NEGATIVE (NEGATIVE); GLUCOSE, URINE NEGATIVE (NEGATIVE); KETONES,URINE NEGATIVE (NEGATIVE); LEUKOCYTE ESTERASE,URINE NEGATIVE (NEGATIVE); NITRITE,URINE NEGATIVE (NEGATIVE); PROTEIN,URINE NEGATIVE (NEGATIVE); URINE SPECIFIC GRAVITY 1.013; UROBILINOGEN,URINE NEGATIVE mg/dL (<2.0)
[2016-10-20] MEDS ORDERED: MAGNESIUM SULFATE/D5W 1 GM/100 ML RTUPB IV ONE (08:00)
--- NOTE | 2016-10-20 08:40 | EKG REPORT ---
SEVERITY:- ABNORMAL ECG - ATRIAL FIBRILLATION, V-RATE 52-78 BORDERLINE LEFT AXIS DEVIATION PROBABLE ANTEROSEPTAL INFARCT, AGE INDETERM : Confirmed by: Viola Bonds 20-Oct-2016 08:39:23
[2016-10-20] MEDS: LANSOPRAZOLE 30 MG TAB.RAP.DR PO SCH (08:45)
[2016-10-20] MEDS: IPRATROPIUM/ALBUTEROL 0.5-2.5 MG/3 ML AMPUL NEB SCH ×4 (08:54→19:50)
[2016-10-20] MEDS: ASPIRIN 81 MG TABLET, ENT COATED PO SCH (09:49)
[2016-10-20] MEDS: FUROSEMIDE INJ/PF 20 MG/2 ML SDV IV SCH ×2 (09:49→22:09)
[2016-10-20] MEDS: RANOLAZINE 500 MG TAB.SR.12H PO SCH ×2 (09:49→22:12)
[2016-10-20] MEDS: CARVEDILOL 3.125 MG TABLET PO SCH ×2 (09:49→22:11)
[2016-10-20] MEDS: ENOXAPARIN SODIUM INJ 100 MG/1 ML DISP.SYRIN SUBCUT SCH (09:50)
--- NOTE | 2016-10-20 11:41 | PDOC PROGRESS REPORT ---
Subjective Progress Note for:: 10/20/16 Subjective:: Pt states that he is doing well. Pt states that his breathing has improved. Pt states that he is having diarrhea this morning. Physical Exam Vital Signs: Temp Pulse Resp BP Pulse Ox 97.5 F 77 24 H 117/61 97 10/20/16 07:29 10/20/16 08:54 10/20/16 08:54 10/20/16 07:29 10/20/16 08:54 Intake & Output 10/19/16 10/20/16 10/21/16 06:59 06:59 06:59 Intake Total 2598 2344 Output Total 1760 5600 Balance 838 -3256 Weight 100.1 kg 95.8 kg General appearance: PRESENT: no acute distress, well-developed, well-nourished Head exam: PRESENT: atraumatic, normocephalic Eye exam: PRESENT: conjunctiva pink, EOMI Neck exam: PRESENT: full ROM Respiratory exam: PRESENT: clear to auscultation jeramy. ABSENT: rales, rhonchi, wheezes Cardiovascular exam: PRESENT: irregular rhythm, other - Trace lower ext edema Vascular exam: PRESENT: normal capillary refill GI/Abdominal exam: PRESENT: normal bowel sounds, soft. ABSENT: distended, guarding, mass, organolmegaly, rebound, tenderness Extremities exam: PRESENT: full ROM. ABSENT: calf tenderness, clubbing, pedal edema Neurological exam: PRESENT: alert, awake, oriented to person, oriented to place , oriented to time, oriented to situation, CN II-XII grossly intact. ABSENT: motor sensory deficit Skin exam: PRESENT: dry, warm Results Laboratory Results: 10/20/16 05:31 10/20/16 05:31 10/19/16 10/20/16 10/20/16 21:45 05:31 05:31 WBC 5.2 RBC 3.42 L Hgb 10.6 L Hct 32.1 L MCV 94 MCH 31.0 MCHC 33.0 RDW 14.6 H Plt Count 129 L Seg Neutrophils % 66.4 Lymphocytes % 18.6 Monocytes % 11.0 Eosinophils % 3.6 Basophils % 0.4 Absolute Neutrophils 3.5 Absolute Lymphocytes 1.0 Absolute Monocytes 0.6 Absolute Eosinophils 0.2 Absolute Basophils 0.0 Sodium 141.2 Potassium 4.4 Chloride 106 Carbon Dioxide 29 Anion Gap 6 BUN 33 H Creatinine 1.14 Est GFR ( Amer) > 60 Est GFR (Non-Af Amer) > 60 Glucose 93 Calcium 8.3 L Magnesium 1.7 Urine Color Urine Appearance Urine pH Ur Specific [place] Urine Protein Urine Glucose (UA) Urine Ketones Urine Blood Urine Nitrite Ur Leukocyte Esterase Urine WBC (Auto) Urine RBC (Auto) Stool Occult Blood POSITIVE 10/20/16 10/20/16 06:40 08:46 WBC RBC Hgb Hct MCV MCH MCHC RDW Plt Count Seg Neutrophils % Lymphocytes % Monocytes % Eosinophils % Basophils % Absolute Neutrophils Absolute Lymphocytes Absolute Monocytes Absolute Eosinophils Absolute Basophils Sodium Potassium Chloride Carbon Dioxide Anion Gap BUN Creatinine Est GFR ( Amer) Est GFR (Non-Af Amer) Glucose Calcium Magnesium Urine Color YELLOW Urine Appearance CLEAR Urine pH 5.0 Ur Specific [place] 1.013 Urine Protein NEGATIVE Urine Glucose (UA) NEGATIVE Urine Ketones NEGATIVE Urine Blood MODERATE H Urine Nitrite NEGATIVE Ur Leukocyte Esterase NEGATIVE Urine WBC (Auto) 3 Urine RBC (Auto) 12 Stool Occult Blood POSITIVE 10/17/16 10/17/16 10/18/16 17:32 22:48 04:58 Troponin I 0.685 9.200 19.400 Impressions: Venous Doppler Study 10/17/16 00:00 IMPRESSION: NO EVIDENCE DVT OR SVT IN EITHER LEG. Chest X-Ray 10/17/16 12:12 IMPRESSION: 1. Cardiomegaly with no eliana CHF. 2. Possible early right lower lobe pneumonia. Assessment & Plan - Diagnosis (1) Sepsis Qualifiers: Sepsis type: sepsis due to unspecified organism Qualified Code(s): A41.9 - Sepsis, unspecified organism Is this a current diagnosis for this admission?: Yes Plan: Secondary to E.coli: Will discontinue Zosyn. Will place on Rocephin. When pt goes home will place on Levaquin. Will check CT of ABD and Pelvis to evaluate for possible infection in abd. Pt has had gram negative organism infections for the last few months. (2) Acute hypercapnic respiratory failure Is this a current diagnosis for this admission?: Yes Plan: Secondary to Sepsis: Resolved. Pt doing well. (3) CHF (congestive heart failure) Qualifiers: Congestive heart failure type: diastolic Congestive heart failure chronicity: acute on chronic Qualified Code(s): I50.33 - Acute on chronic diastolic (congestive) heart failure Is this a current diagnosis for this admission?: Yes Plan: Secondary to Volume expansion in setting Sepsis: Resolved. (4) Hypotension Qualifiers: Hypotension type: unspecified hypotension type Qualified Code(s): I95.9 - Hypotension, unspecified Is this a current diagnosis for this admission?: Yes Plan: Secondary to Sepsis: Resolved. (5) Hyperkalemia Is this a current diagnosis for this admission?: Yes Plan: Resolved. (6) Non-STEMI (non-ST elevated myocardial infarction) Is this a current diagnosis for this admission?: Yes Plan: Secondary to Demand Ischemia: Pt on Coreg and Lisinopril. (7) Right lower lobe pneumonia Qualifiers: Pneumonia type: due to unspecified organism Qualified Code(s): J18.1 - Lobar pneumonia, unspecified organism Is this a current diagnosis for this admission?: Yes Plan: Will continue place on Rocephin and discharge home on Levaquin. (8) Pulmonary hypertension Is this a current diagnosis for this admission?: Yes Plan: Supportive care. (9) Atrial fibrillation Qualifiers: Atrial fibrillation type: chronic Qualified Code(s): I48.2 - Chronic atrial fibrillation Is this a current diagnosis for this admission?: Yes Plan: Pt not on anticoagulation at home. Pt states that he only takes ASA due to blood in stool. (10) Anemia Qualifiers: Iron deficiency anemia type: chronic blood loss Is this a current diagnosis for this admission?: Yes Plan: Pt hemo positive but not actively bleeding. Will continue to monitor. (11) Debility Is this a current diagnosis for this admission?: Yes Plan: Will have PT and OT evaluate pt. - Time Time Spent with patient: 25-34 minutes
[2016-10-20] MEDS: CEFTRIAXONE 1 GM/D5W RTU 1 GM/50 ML RTUPB IV SCH (12:08)
[2016-10-20] MEDS ORDERED: LISINOPRIL 5 MG TABLET PO ONE (12:30)
--- NOTE | 2016-10-20 15:15 | RADIOLOGY REPORT (SQ) ---
EXAM DESCRIPTION: CT ABD/PELVIS ORAL ONLY COMPLETED DATE/TIME: 10/20/2016 2:13 pm REASON FOR STUDY: Bacteremia COMPARISON: CT abdomen pelvis 07/09/2012, 10/27/2015, 04/09/2016 TECHNIQUE: CT scan of the abdomen and pelvis performed without intravenous contrast. Patient drank oral contrast. Images reviewed with lung, soft tissue, and bone windows. Reconstructed coronal and sagittal MPR imag es reviewed. All images stored on PACS. All CT scanners at this facility use dose modulation, iterative reconstruction, and/or weight based d osing when appropriate to reduce radiation dose to as low as reasonably achievable (ALARA). [facility]: Dose Right [facility]: CareDose [facility]: Dose Right [facility]: Teradose 4D [facility]: [employer] RADIATION DOSE: Up-to-date CT equipment and radiation dose reduction techniques were employed. CTDIv ol: 20.8 mGy. DLP: 1181 mGy-cm.mGy. LIMITATIONS: None. FINDINGS: LOWER CHEST: Heavily calcified aortic valve and coronary arteries. Small bilateral pleura l effusions with bibasilar airspace disease atelectasis versus pneumonia. NON-CONTRASTED LIVER, SPLEEN, ADRENALS: Evaluation limited by lack of IV contrast. No identified sign ificant masses. PANCREAS: No masses. No peripancreatic inflammatory changes. GALLBLADDER: Surgically absent RIGHT KIDNEY AND URETER: No suspicious masses. Assessment limited by lack of IV contrast. 2 cm nodul e versus hemorrhagic cyst right upper pole kidney, 5 mm upper pole hemorrhagic cyst. 1 cm simple cys t right mid-pole kidney. No significant calcifications. No hydronephrosis or hydroureter. LEFT KIDNEY AND URETER: No suspicious masses. Assessment limited by lack of IV contrast. No signifi cant calcifications. No hydronephrosis or hydroureter. AORTA AND RETROPERITONEUM: No aneurysm. Heavily calcified visceral arteries No retroperitoneal tanner s or adenopathy. BOWEL AND PERITONEAL CAVITY: No obvious masses or inflammatory changes. No free fluid. APPENDIX: Not visualized. No right lower quadrant inflammatory change PELVIS, BLADDER, AND ABDOMINAL WALL:No abnormal masses. No free fluid. Bladder decompressed by Child[place] catheter BONES: Profound convex rightward lumbar curvature. OTHER: No other significant finding. IMPRESSION: NO ACUTE PROCESS IN THE ABDOMEN OR PELVIS. TECHNICAL DOCUMENTATION: JOB ID: [id number] Quality ID # [id number]: Final reports with documentation of one or more dose reduction techniques (e.g., Au tomated exposure control, adjustment of the mA and/or kV according to patient size, use of iterative reconstruction technique) 2010 [employer]- All Rights Reserved
[2016-10-20] MEDS: ATORVASTATIN CALCIUM 40 MG TABLET PO SCH (22:12)
[2016-10-21] MEDS: ALPRAZOLAM 0.5 MG TABLET PO PRN ×2 (06:25→22:03)
[2016-10-21 06:30] LABS: ABSOLUTE EOSINOPHILS # (AUTO) 0.2 10^3/uL (0.0-0.6); ABSOLUTE LYMPHOCYTES (AUTO) 0.9 10^3/uL (0.5-4.7); ABSOLUTE MONOCYTES (AUTO) 0.5 10^3/uL (0.1-1.4); ABSOLUTE NEUT (AUTO) 2.5 10^3/uL (1.7-8.2); BASOPHILS % (AUTO) 0.3 % (0-2); EOSINOPHILS % (AUTO) 5.5 % (0-6); HEMATOCRIT 33.7 % (37.9-51.0); HEMOGLOBIN 11.1 g/dL (13.5-17.0); HGB HCT DIFFERENCE -0.4; LYMPHOCYTES % (AUTO) 20.9 % (13-45); MEAN CORPUSCULAR HEMOGLOBIN 30.7 pg (27.0-33.4); MEAN CORPUSCULAR HGB CONC 32.9 g/dL (32.0-36.0); MEAN CORPUSCULAR VOLUME 93 fl (80-97); MONOCYTES % (AUTO) 12.7 % (3-13); RED BLOOD COUNT 3.61 10^6/uL (4.35-5.55); RED CELL DISTRIBUTION WIDTH 14.2 % (11.5-14.0); SEGMENTED NEUTROPHILS % (AUTO) 60.6 % (42-78); WHITE BLOOD COUNT 4.1 10^3/uL (4.0-10.5)
[2016-10-21 06:43] LABS: ANION GAP 9 (5-19); BLOOD UREA NITROGEN 26 mg/dL (7-20); CALCIUM 9.1 mg/dL (8.4-10.2); CARBON DIOXIDE 30 mmol/L (22-30); CHLORIDE 103 mmol/L (98-107); CREATININE RESULT 0.79 mg/dL (0.52-1.25); GLUCOSE 115 mg/dL (75-110); MAGNESIUM 1.8 mg/dL (1.6-2.3); POTASSIUM 4.3 mmol/L (3.6-5.0); SODIUM 141.6 mmol/L (137-145)
[2016-10-21] MEDS: IPRATROPIUM/ALBUTEROL 0.5-2.5 MG/3 ML AMPUL NEB SCH ×4 (08:07→20:39)
[2016-10-21] MEDS: LANSOPRAZOLE 30 MG TAB.RAP.DR PO SCH (08:52)
[2016-10-21] MEDS ORDERED: LISINOPRIL 5 MG TABLET PO SCH (10:00)
[2016-10-21] MEDS: RANOLAZINE 500 MG TAB.SR.12H PO SCH ×2 (10:02→22:02)
[2016-10-21] MEDS: FUROSEMIDE INJ/PF 20 MG/2 ML SDV IV SCH ×2 (10:03→22:03)
[2016-10-21] MEDS: ASPIRIN 81 MG TABLET, ENT COATED PO SCH (10:03)
[2016-10-21] MEDS: CARVEDILOL 3.125 MG TABLET PO SCH ×2 (10:03→22:03)
[2016-10-21] MEDS: LISINOPRIL 10 MG TABLET PO SCH (10:03)
[2016-10-21] MEDS: CEFTRIAXONE 1 GM/D5W RTU 1 GM/50 ML RTUPB IV SCH (12:03)
--- NOTE | 2016-10-21 12:25 | PDOC PROGRESS REPORT ---
Subjective Progress Note for:: 10/21/16 Subjective:: Patient seen this morning patient states that he is somewhat short of breath with exertion. Nursing also reports that patient does have scrotal edema. Patient states that he did have swelling of his scrotum prior to admission to hospital. Patient reports that his breathing has improved since yesterday. Nursing also reports that it takes 2 people to assist patient with getting up from bed. Physical Exam Vital Signs: Temp Pulse Resp BP Pulse Ox 97.5 F 77 22 H 154/81 H 94 10/21/16 07:27 10/21/16 08:07 10/21/16 08:07 10/21/16 07:27 10/21/16 08:07 Intake & Output 10/20/16 10/21/16 10/22/16 06:59 06:59 06:59 Intake Total 2344 1188 Output Total 5600 2500 Balance -3256 -1312 Weight 95.8 kg 96 kg General appearance: PRESENT: no acute distress, well-developed, well-nourished Head exam: PRESENT: atraumatic, normocephalic Eye exam: PRESENT: conjunctiva pink, EOMI, PERRLA. ABSENT: scleral icterus Ear exam: PRESENT: normal external ear exam Mouth exam: PRESENT: moist, tongue midline Neck exam: ABSENT: carotid bruit, JVD, lymphadenopathy, thyromegaly Respiratory exam: PRESENT: clear to auscultation jeramy, other - diminished at bases. ABSENT: rales, rhonchi, wheezes Cardiovascular exam: PRESENT: irregular rhythm. ABSENT: diastolic murmur, rubs , systolic murmur Pulses: PRESENT: normal dorsalis pedis pul GI/Abdominal exam: PRESENT: normal bowel sounds, soft. ABSENT: distended, guarding, mass, organolmegaly, rebound, tenderness Extremities exam: PRESENT: full ROM, pedal edema, +2 edema. ABSENT: calf tenderness, clubbing Musculoskeletal exam: PRESENT: full ROM Neurological exam: PRESENT: alert, awake, oriented to person, oriented to place , oriented to time, oriented to situation, CN II-XII grossly intact. ABSENT: motor sensory deficit Skin exam: PRESENT: dry, warm Results Laboratory Results: 10/21/16 05:53 10/21/16 05:53 10/21/16 10/21/16 05:53 05:53 WBC 4.1 RBC 3.61 L Hgb 11.1 L Hct 33.7 L MCV 93 MCH 30.7 MCHC 32.9 RDW 14.2 H Plt Count 151 Seg Neutrophils % 60.6 Lymphocytes % 20.9 Monocytes % 12.7 Eosinophils % 5.5 Basophils % 0.3 Absolute Neutrophils 2.5 Absolute Lymphocytes 0.9 Absolute Monocytes 0.5 Absolute Eosinophils 0.2 Absolute Basophils 0.0 Sodium 141.6 Potassium 4.3 Chloride 103 Carbon Dioxide 30 Anion Gap 9 BUN 26 H Creatinine 0.79 Est GFR ( Amer) > 60 Est GFR (Non-Af Amer) > 60 Glucose 115 H Calcium 9.1 Magnesium 1.8 10/17/16 10/17/16 10/18/16 17:32 22:48 04:58 Troponin I 0.685 9.200 19.400 Impressions: Venous Doppler Study 10/17/16 00:00 IMPRESSION: NO EVIDENCE DVT OR SVT IN EITHER LEG. Chest X-Ray 10/17/16 12:12 IMPRESSION: 1. Cardiomegaly with no eliana CHF. 2. Possible early right lower lobe pneumonia. Abdomen/Pelvis CT 10/20/16 00:00 IMPRESSION: NO ACUTE PROCESS IN THE ABDOMEN OR PELVIS. Assessment & Plan - Diagnosis (1) Sepsis Qualifiers: Sepsis type: sepsis due to unspecified organism Qualified Code(s): A41.9 - Sepsis, unspecified organism Is this a current diagnosis for this admission?: Yes Plan: Secondary to E.coli: Will continue Rocephin. When pt goes home will place on Levaquin. CT of ABD and Pelvis demonstrated no acute process. Pt has had gram negative organism infections for the last few months. (2) Acute hypercapnic respiratory failure Is this a current diagnosis for this admission?: Yes Plan: Secondary to Sepsis: Resolving. Pt doing well. (3) CHF (congestive heart failure) Qualifiers: Congestive heart failure type: diastolic Congestive heart failure chronicity: acute on chronic Qualified Code(s): I50.33 - Acute on chronic diastolic (congestive) heart failure Is this a current diagnosis for this admission?: Yes Plan: Secondary to Volume expansion in setting Sepsis: Resolving. Cardiology has placed pt on Lasix IV BID. Will continue to monitor. (4) Hypotension Qualifiers: Hypotension type: unspecified hypotension type Qualified Code(s): I95.9 - Hypotension, unspecified Is this a current diagnosis for this admission?: Yes Plan: Secondary to Sepsis: Resolved. (5) Hyperkalemia Is this a current diagnosis for this admission?: Yes Plan: Resolved. (6) Non-STEMI (non-ST elevated myocardial infarction) Is this a current diagnosis for this admission?: Yes Plan: Secondary to Demand Ischemia: Pt on Coreg and Lisinopril. (7) Right lower lobe pneumonia Qualifiers: Pneumonia type: due to unspecified organism Qualified Code(s): J18.1 - Lobar pneumonia, unspecified organism Is this a current diagnosis for this admission?: Yes Plan: Will continue place on Rocephin and discharge home on Levaquin. (8) Pulmonary hypertension Is this a current diagnosis for this admission?: Yes Plan: Supportive care. (9) Atrial fibrillation Qualifiers: Atrial fibrillation type: chronic Qualified Code(s): I48.2 - Chronic atrial fibrillation Is this a current diagnosis for this admission?: Yes Plan: Pt not on anticoagulation at home. Pt states that he only takes ASA due to blood in stool. (10) Anemia Qualifiers: Iron deficiency anemia type: chronic blood loss Is this a current diagnosis for this admission?: Yes Plan: Pt hemo positive but not actively bleeding. Will continue to monitor. (11) Debility Is this a current diagnosis for this admission?: Yes Plan: PT and OT evaluate pt. - Time Time Spent with patient: Less than 15 minutes
[2016-10-21] MEDS: ATORVASTATIN CALCIUM 40 MG TABLET PO SCH (22:02)
[2016-10-21] MEDS: ACETAMINOPHEN 325 MG TABLET PO PRN (22:03)
[2016-10-22 04:58] LABS: HEMATOCRIT 33.5 % (37.9-51.0); HEMOGLOBIN 11.1 g/dL (13.5-17.0); HGB HCT DIFFERENCE -0.2; MEAN CORPUSCULAR HEMOGLOBIN 30.7 pg (27.0-33.4); MEAN CORPUSCULAR HGB CONC 33.2 g/dL (32.0-36.0); MEAN CORPUSCULAR VOLUME 93 fl (80-97); RED BLOOD COUNT 3.62 10^6/uL (4.35-5.55); RED CELL DISTRIBUTION WIDTH 14.3 % (11.5-14.0); WHITE BLOOD COUNT 4.3 10^3/uL (4.0-10.5)
[2016-10-22 08:15] LABS: ANION GAP 6 (5-19); BLOOD UREA NITROGEN 25 mg/dL (7-20); CALCIUM 9.8 mg/dL (8.4-10.2); CARBON DIOXIDE 35 mmol/L (22-30); CHLORIDE 100 mmol/L (98-107); CREATININE RESULT 0.89 mg/dL (0.52-1.25); GLUCOSE 127 mg/dL (75-110); POTASSIUM 3.9 mmol/L (3.6-5.0)
[2016-10-22] MEDS: IPRATROPIUM/ALBUTEROL 0.5-2.5 MG/3 ML AMPUL NEB SCH ×4 (08:33→20:15)
[2016-10-22] MEDS: LANSOPRAZOLE 30 MG TAB.RAP.DR PO SCH (08:40)
[2016-10-22] MEDS: ACETAMINOPHEN 325 MG TABLET PO PRN ×2 (08:40→18:19)
[2016-10-22] MEDS: ASPIRIN 81 MG TABLET, ENT COATED PO SCH (08:42)
[2016-10-22] MEDS: LISINOPRIL 10 MG TABLET PO SCH (08:43)
[2016-10-22] MEDS: RANOLAZINE 500 MG TAB.SR.12H PO SCH ×2 (08:43→21:27)
[2016-10-22] MEDS: CARVEDILOL 3.125 MG TABLET PO SCH ×2 (08:44→21:28)
[2016-10-22] MEDS: FUROSEMIDE INJ/PF 20 MG/2 ML SDV IV SCH (08:44)
[2016-10-22] MEDS: CEFTRIAXONE 1 GM/D5W RTU 1 GM/50 ML RTUPB IV SCH (12:00)
[2016-10-22] MEDS ORDERED: FUROSEMIDE 40 MG TABLET PO PRN (15:38)
--- NOTE | 2016-10-22 15:47 | PDOC PROGRESS REPORT ---
Subjective Progress Note for:: 10/22/16 Subjective:: Patient was seen early this morning. Patient states that his breathing has greatly improved. Patient also states that his leg swelling has improved. Patient thinks that rehab would be a good idea for him therefore him and his daughter are agreeable to rehab placement. She states that this will give additional time for him to arrange caregivers for his return home. Physical Exam Vital Signs: Temp Pulse Resp BP Pulse Ox 98.1 F 100 20 115/55 L 100 10/22/16 11:55 10/22/16 14:00 10/22/16 11:55 10/22/16 11:55 10/22/16 11:55 Intake & Output 10/21/16 10/22/16 10/23/16 06:59 06:59 06:59 Intake Total 1188 930 Output Total 2500 3700 Balance -1312 -2770 Weight 96 kg 95.7 kg 95.7 kg General appearance: PRESENT: no acute distress, well-developed, well-nourished Head exam: PRESENT: atraumatic, normocephalic Eye exam: PRESENT: conjunctiva pink, EOMI. ABSENT: scleral icterus Ear exam: PRESENT: normal external ear exam Mouth exam: PRESENT: moist Neck exam: ABSENT: carotid bruit, JVD, lymphadenopathy, thyromegaly Respiratory exam: PRESENT: clear to auscultation jeramy. ABSENT: rales, rhonchi, wheezes Cardiovascular exam: PRESENT: irregular rhythm, other - +1 pitting edema of lower extremities Vascular exam: PRESENT: normal capillary refill GI/Abdominal exam: PRESENT: normal bowel sounds, soft. ABSENT: distended, guarding, mass, organolmegaly, rebound, tenderness Extremities exam: PRESENT: other - +1 pitting edema of lower extremities Musculoskeletal exam: PRESENT: full ROM, other - Patient needs 2 person assist with ambulating Neurological exam: PRESENT: alert, awake, oriented to person, oriented to place , oriented to time, oriented to situation, CN II-XII grossly intact. ABSENT: motor sensory deficit Psychiatric exam: PRESENT: appropriate affect, normal mood. ABSENT: homicidal ideation, suicidal ideation Skin exam: PRESENT: dry, warm. ABSENT: cyanosis Results Laboratory Results: 10/22/16 04:27 10/22/16 04:27 10/22/16 10/22/16 04:27 04:27 WBC 4.3 RBC 3.62 L Hgb 11.1 L Hct 33.5 L MCV 93 MCH 30.7 MCHC 33.2 RDW 14.3 H Plt Count 160 Sodium 141.0 Potassium 3.9 Chloride 100 Carbon Dioxide 35 H Anion Gap 6 BUN 25 H Creatinine 0.89 Est GFR ( Amer) > 60 Est GFR (Non-Af Amer) > 60 Glucose 127 H Calcium 9.8 10/17/16 10/17/16 10/18/16 17:32 22:48 04:58 Troponin I 0.685 9.200 19.400 Impressions: Venous Doppler Study 10/17/16 00:00 IMPRESSION: NO EVIDENCE DVT OR SVT IN EITHER LEG. Chest X-Ray 10/17/16 12:12 IMPRESSION: 1. Cardiomegaly with no eliana CHF. 2. Possible early right lower lobe pneumonia. Abdomen/Pelvis CT 10/20/16 00:00 IMPRESSION: NO ACUTE PROCESS IN THE ABDOMEN OR PELVIS. Assessment & Plan - Diagnosis (1) Sepsis Qualifiers: Sepsis type: sepsis due to unspecified organism Qualified Code(s): A41.9 - Sepsis, unspecified organism Is this a current diagnosis for this admission?: Yes Plan: Secondary to E.coli: Will continue Rocephin. When pt goes home will place on Levaquin. CT of ABD and Pelvis demonstrated no acute process. Pt has had gram negative organism infections for the last few months. Patient states that his personal hygiene may be playing a role to his multiple gram-negative infections (2) Acute hypercapnic respiratory failure Is this a current diagnosis for this admission?: Yes Plan: Secondary to Sepsis: Resolving. Pt doing well. (3) CHF (congestive heart failure) Qualifiers: Congestive heart failure type: diastolic Congestive heart failure chronicity: acute on chronic Qualified Code(s): I50.33 - Acute on chronic diastolic (congestive) heart failure Is this a current diagnosis for this admission?: Yes Plan: Secondary to Volume expansion in setting Sepsis: Resolving. Will change patient to d Lasix p.o. daily. Will check BMP in a.m. will continue to monitor. (4) Hypotension Qualifiers: Hypotension type: unspecified hypotension type Qualified Code(s): I95.9 - Hypotension, unspecified Is this a current diagnosis for this admission?: Yes Plan: Secondary to Sepsis: Resolved. (5) Hyperkalemia Is this a current diagnosis for this admission?: Yes Plan: Resolved. (6) Non-STEMI (non-ST elevated myocardial infarction) Is this a current diagnosis for this admission?: Yes Plan: Secondary to Demand Ischemia: Pt on Coreg and Lisinopril. (7) Right lower lobe pneumonia Qualifiers: Pneumonia type: due to unspecified organism Qualified Code(s): J18.1 - Lobar pneumonia, unspecified organism Is this a current diagnosis for this admission?: Yes Plan: Will continue place on Rocephin and discharge home on Levaquin. (8) Pulmonary hypertension Is this a current diagnosis for this admission?: Yes Plan: Supportive care. (9) Atrial fibrillation Qualifiers: Atrial fibrillation type: chronic Qualified Code(s): I48.2 - Chronic atrial fibrillation Is this a current diagnosis for this admission?: Yes Plan: Pt not on anticoagulation at home. Pt states that he only takes ASA due to blood in stool. We will continue Coreg (10) Anemia Qualifiers: Iron deficiency anemia type: chronic blood loss Is this a current diagnosis for this admission?: Yes Plan: Pt hemo positive but not actively bleeding. Will continue to monitor. (11) Debility Is this a current diagnosis for this admission?: Yes Plan: PT and OT evaluate pt. Patient has agreed to Rehab and is requesting to go to [facility] in [place] - Time Time Spent with patient: 15-24 minutes - Spoke to patient's daughter on phone for 15 minutes
[2016-10-22] MEDS: ALPRAZOLAM 0.5 MG TABLET PO PRN (18:19)
[2016-10-22] MEDS: ATORVASTATIN CALCIUM 40 MG TABLET PO SCH (21:27)
[2016-10-23] MEDS: ACETAMINOPHEN 325 MG TABLET PO PRN ×2 (04:25→15:46)
[2016-10-23] MEDS: ALPRAZOLAM 0.5 MG TABLET PO PRN ×2 (04:25→15:46)
[2016-10-23 06:04] LABS: ANION GAP 7 (5-19); BLOOD UREA NITROGEN 25 mg/dL (7-20); CALCIUM 9.2 mg/dL (8.4-10.2); CARBON DIOXIDE 35 mmol/L (22-30); CHLORIDE 98 mmol/L (98-107); CREATININE RESULT 0.82 mg/dL (0.52-1.25); GLUCOSE 115 mg/dL (75-110); POTASSIUM 4.2 mmol/L (3.6-5.0); SODIUM 140.4 mmol/L (137-145)
[2016-10-23 06:13] LABS: APPEARANCE,URINE CLEAR; BILIRUBIN,URINE NEGATIVE (NEGATIVE); GLUCOSE, URINE NEGATIVE (NEGATIVE); KETONES,URINE NEGATIVE (NEGATIVE); LEUKOCYTE ESTERASE,URINE NEGATIVE (NEGATIVE); NITRITE,URINE NEGATIVE (NEGATIVE); PROTEIN,URINE NEGATIVE (NEGATIVE); URINE SPECIFIC GRAVITY 1.006; UROBILINOGEN,URINE NEGATIVE mg/dL (<2.0)
[2016-10-23] MEDS ORDERED: NITROGLYCERIN 0.4 MG/TAB 25 TAB/BOTTLE SL PRN (07:12)
[2016-10-23] MEDS ORDERED: ONDANSETRON HCL INJ/PF 4 MG/2 ML SDV IV PRN (07:30)
[2016-10-23] MEDS: IPRATROPIUM/ALBUTEROL 0.5-2.5 MG/3 ML AMPUL NEB SCH ×4 (08:40→20:42)
[2016-10-23] MEDS: LISINOPRIL 10 MG TABLET PO SCH (10:53)
[2016-10-23] MEDS: ASPIRIN 81 MG TABLET, ENT COATED PO SCH (10:53)
[2016-10-23] MEDS: RANOLAZINE 500 MG TAB.SR.12H PO SCH ×2 (10:54→21:51)
[2016-10-23] MEDS: LANSOPRAZOLE 30 MG TAB.RAP.DR PO SCH (10:54)
[2016-10-23] MEDS: CARVEDILOL 3.125 MG TABLET PO SCH ×2 (10:54→21:50)
[2016-10-23] MEDS: CEFTRIAXONE 1 GM/D5W RTU 1 GM/50 ML RTUPB IV SCH (11:00)
--- NOTE | 2016-10-23 15:44 | PDOC PROGRESS REPORT ---
Subjective Progress Note for:: 10/23/16 Subjective:: Patient sitting up in chair. No complaints at this time. Patient ready for rehab. Plan is for discharge to rehab in the morning. Physical Exam Vital Signs: Temp Pulse Resp BP Pulse Ox 97.6 F 78 12 140/65 H 98 10/23/16 07:54 10/23/16 12:48 10/23/16 12:48 10/23/16 07:54 10/23/16 12:48 Intake & Output 10/22/16 10/23/16 10/24/16 06:59 06:59 06:59 Intake Total 930 1232 Output Total 3700 2850 Balance -2770 -1618 Weight 95.7 kg 88.7 kg General appearance: PRESENT: well-developed Head exam: PRESENT: atraumatic, normocephalic Mouth exam: PRESENT: moist Respiratory exam: PRESENT: clear to auscultation jeramy Cardiovascular exam: PRESENT: systolic murmur GI/Abdominal exam: PRESENT: other Rectal exam: PRESENT: deferred Extremities exam: PRESENT: pedal edema Neurological exam: PRESENT: alert, altered, awake Psychiatric exam: PRESENT: appropriate affect Skin exam: PRESENT: other - stasis dermatitis with hyperpigmentation Results Laboratory Results: 10/22/16 04:27 10/23/16 05:09 10/23/16 10/23/16 05:09 05:15 Sodium 140.4 Potassium 4.2 Chloride 98 Carbon Dioxide 35 H Anion Gap 7 BUN 25 H Creatinine 0.82 Est GFR ( Amer) > 60 Est GFR (Non-Af Amer) > 60 Glucose 115 H Calcium 9.2 Urine Color YELLOW Urine Appearance CLEAR Urine pH 6.0 Ur Specific [place] 1.006 Urine Protein NEGATIVE Urine Glucose (UA) NEGATIVE Urine Ketones NEGATIVE Urine Blood MODERATE H Urine Nitrite NEGATIVE Ur Leukocyte Esterase NEGATIVE Urine WBC (Auto) 2 Urine RBC (Auto) 4 10/17/16 10/17/16 10/18/16 17:32 22:48 04:58 Troponin I 0.685 9.200 19.400 Impressions: Venous Doppler Study 10/17/16 00:00 IMPRESSION: NO EVIDENCE DVT OR SVT IN EITHER LEG. Chest X-Ray 10/17/16 12:12 IMPRESSION: 1. Cardiomegaly with no eliana CHF. 2. Possible early right lower lobe pneumonia. Abdomen/Pelvis CT 10/20/16 00:00 IMPRESSION: NO ACUTE PROCESS IN THE ABDOMEN OR PELVIS. Assessment & Plan - Diagnosis (1) Acute hypercapnic respiratory failure Is this a current diagnosis for this admission?: Yes Plan: Secondary to sepsis now resolved. Patient now on room air sating well. (2) CHF (congestive heart failure) Qualifiers: Congestive heart failure type: diastolic Congestive heart failure chronicity: acute on chronic Qualified Code(s): I50.33 - Acute on chronic diastolic (congestive) heart failure Is this a current diagnosis for this admission?: Yes Plan: Due to fluid resuscitation when hypotensive due to sepsis. Continue oral lasix. Patient now with negative fluid balance. (3) Debility Is this a current diagnosis for this admission?: Yes Plan: Plan is for discharge to [facility] in the [place] in the morning. Will discontinue schmidt today in order to allow patient to void by tomorrow. (4) Hypotension Qualifiers: Hypotension type: unspecified hypotension type Qualified Code(s): I95.9 - Hypotension, unspecified Is this a current diagnosis for this admission?: Yes (5) Non-STEMI (non-ST elevated myocardial infarction) Is this a current diagnosis for this admission?: Yes Plan: Type 2 MD secondary to sepsis. Will continue betablocker and lisinopril. Will add aspirin if patient not already on it. (6) Pneumonia Qualifiers: Pneumonia type: due to unspecified organism Laterality: left Lung location: lower lobe of lung Qualified Code(s): J18.9 - Pneumonia, unspecified organism Plan: Continue ceftriaxone. Will switch to levaquin on discharge. (7) Sepsis Qualifiers: Sepsis type: Escherichia coli Qualified Code(s): A41.51 - Sepsis due to Escherichia coli [E. coli] Is this a current diagnosis for this admission?: Yes Plan: Patient with Ecoli bacteremia with sepsis. Patient has a negative CT abdomen and pelvis and urine was negative. Concerned that patient personal hygiene may be playing a role in his repeated infections. (8) Anemia Qualifiers: Iron deficiency anemia type: chronic blood loss Is this a current diagnosis for this admission?: Yes Plan: Patient with heme positive stool however no active bleeding. Patient hemoglobin is stable. (9) Atrial fibrillation Qualifiers: Atrial fibrillation type: chronic Qualified Code(s): I48.2 - Chronic atrial fibrillation Is this a current diagnosis for this admission?: Yes Plan: Now rate controlled on betablocker. Patient not on anticoagulation due to possible GI bleeding. Patient only on aspirin. - Time Time Spent with patient: 15-24 minutes - Discussed with rita about his discharge plan and plan of care for today which is to removed his schmidt and allow him to void on his own. Told patient that I was unsure of the time he would be going to rehab but it would be tomorrow. Anticipated discharge: SNF Within: within 24 hours
[2016-10-23] MEDS: ATORVASTATIN CALCIUM 40 MG TABLET PO SCH (21:51)
[2016-10-24] MEDS: ALPRAZOLAM 0.5 MG TABLET PO PRN ×2 (00:25→10:06)
[2016-10-24] MEDS: ACETAMINOPHEN 325 MG TABLET PO PRN ×2 (00:25→10:06)
[2016-10-24 06:57] LABS: HEMATOCRIT 32.8 % (37.9-51.0); HGB HCT DIFFERENCE 0.2; MEAN CORPUSCULAR HEMOGLOBIN 30.9 pg (27.0-33.4); MEAN CORPUSCULAR HGB CONC 33.5 g/dL (32.0-36.0); MEAN CORPUSCULAR VOLUME 92 fl (80-97); RED BLOOD COUNT 3.56 10^6/uL (4.35-5.55); RED CELL DISTRIBUTION WIDTH 14.1 % (11.5-14.0); WHITE BLOOD COUNT 5.1 10^3/uL (4.0-10.5)
[2016-10-24] MEDS: IPRATROPIUM/ALBUTEROL 0.5-2.5 MG/3 ML AMPUL NEB SCH ×2 (08:14→11:58)
[2016-10-24] MEDS: LISINOPRIL 10 MG TABLET PO SCH (10:03)
[2016-10-24] MEDS: CARVEDILOL 3.125 MG TABLET PO SCH (10:03)
[2016-10-24] MEDS: ASPIRIN 81 MG TABLET, ENT COATED PO SCH (10:03)
[2016-10-24] MEDS: LANSOPRAZOLE 30 MG TAB.RAP.DR PO SCH (10:04)
[2016-10-24] MEDS: RANOLAZINE 500 MG TAB.SR.12H PO SCH (10:04)
[2016-10-24] MEDS ORDERED: CEFTRIAXONE 1 GM/D5W RTU 1 GM/50 ML RTUPB IV SCH (12:00)
--- NOTE | 2016-10-24 12:08 | DISCHARGE SUMMARY E ---
Discharge Summary NAME: JENNIFER AGUILAR : 1930 AGE: 86Y ADMITTED: 10/17/2016 DISCHARGED: 10/24/2016 DISCHARGE DIAGNOSES: 1. Acute hypercapnic respiratory failure. 2. CHF. 3. Debility. 4. Hypotension. 5. E. coli bacteremia. 6. Type 2 MT. 7. Pneumonia. 8. Anemia 9. Atrial fibrillation. CONSULTANTS: Dr. Bonds, Cardiology. PROCEDURES DONE THIS ADMISSION: Venous Doppler study which showed no evidence of DVT or SVT in either leg. Chest x-ray on 10/17/2016 showed cardiomegaly with no eliana CHF, possible early right lower lobe pneumonia. CT abdomen and pelvis on 10/20/2016 showed no acute process in the abdomen or pelvis. The patient had a cardiac echo done on 10/17/2016 which showed left ventricular systolic function is low normal. LV diastolic function could not be adequately assessed due to atrial fibrillation. There is mild concentric left ventricular hypertrophy. Left ventricle is grossly normal in size. There is inferior wall hypokinesis. The right ventricle appears to be hypertrophied. The right ventricle is mild to moderately dilated. The right ventricle systolic function is normal. The left atrium is severely dilated. The right atrium is mildly dilated. There is no mitral valve stenosis. There is mild mitral regurgitation. There is moderate aortic stenosis. The peak gradient is 55, mean 30 mmHg. There is trace to mild amount of aortic regurgitation. There is [id number] amount of tricuspid regurgitation. There is kgkrywpb-au-jpidae pulmonary hypertension by echo. Right ventricular systolic pressure is estimated to be elevated at greater than 60 mmHg. The aortic root is not well visualized. HISTORY OF PRESENT ILLNESS: HPI dictated by Dr. Prisca Augustin. Patient is an 86-year-old male with a past medical history of diabetes, previous stroke, AFib, and hypertension, presents with progressive shortness of breath. Patient denies a history of congestive heart failure and is usually seen in [facility]. However, review of the medications is consistent with heart failure therapy. In the emergency room the patient was noted to have an O2 of 78% on room air. Patient was started on BiPAP. Chest x-ray was done which showed a right lower lobe pneumonia and the patient happened to be febrile as well. BiPAP was initially started at 50% FIO2. Patient was titrated to 30% with O2 sat of 98%. Unfortunately, patient's blood pressure was low in the emergency room. He was given a 2-liter bolus and his blood pressure did return to 100 systolic and continued to trend down. Patient's PCP is Dr. Malik Tobar. PAST MEDICAL HISTORY: Atrial fibrillation, hyperlipidemia, hypertension. Pulmonary medical history of COPD, pneumonia, asthma. Neurological, essential tremor. Type 2 diabetes. Hiatal hernia. Depression. Anemia. PAST SURGICAL HISTORY: Partial colectomy, blepharoplasty, cataract surgery, melanoma removal, cardiac catheterization, stent placement, cholecystectomy, herniorrhaphy. SOCIAL HISTORY: Lives alone. Past smoker. Does not drink or use drugs. FAMILY HISTORY: Positive for COPD. ALLERGIES: 1. ALBUTEROL - sore throat. 2. MORPHINE - hallucinations. 3. MEPERIDINE - hallucinations. HOSPITAL COURSE: 1. Sepsis secondary to E. coli. bacteremia: The patient's repeat blood cultures were negative. Patient was on ceftriaxone, which will be transitioned to Levaquin on discharge. Patient had a CT of the abdomen and pelvis that was done that did not show any acute process. Patient did not have any clear signs of infection. A CT of the abdomen and pelvis was negative and urine culture was negative. Patient has had repeated Gram-negative cultures in the past; however, the patient does state that he has difficulty cleaning himself, especially when he has a bowel movement, and there is some concern that this may be due to personal hygiene. 2. Acute hypercapnic respiratory failure: Patient does have a history of COPD; however, symptoms were worsened, most likely due to his acute infection or his sepsis. Patient did require BiPAP initially during the hospitalization but was weaned off of that and is now on intermittent supplemental oxygen. 3. Congestive heart failure: Patient does have acute on chronic diastolic heart failure. Patient had worsening symptoms due to receiving volume expansion while he was hypotensive and septic. Patient was diuresed with Lasix and his pedal edema has improved; however, the patient does have chronic skin changes from chronic venous stasis. 4. Hypotension due to his sepsis: Now resolved. 5. Hypokalemia: Resolved. 6. Type 2 MT: Most likely due to demand ischemia. Patient was evaluated by Cardiology during this hospitalization. When evaluated by Cardiology it was determined that he did have an NSTEMI as he had positive troponins but no chest pain; however, oftentimes patients do not have chest pain. Patient was started on aspirin and statins. Later on beta blockers and ZABRINA were added. Patient was continued on his home dose of Imdur. Ranexa was started in the hospital. Patient was initially on dual therapy with aspirin and Plavix; however, the patient is at risk of bleed, so the patient is now just continued on aspirin. 7. Right lower lobe pneumonia: Patient was treated with ceftriaxone and showed significant improvement. Patient will be transitioned to Levaquin on discharge. 8. Pulmonary hypertension: Stable. 9. Atrial fibrillation: We will continue beta gay and aspirin. Patient was not on any anticoagulation due to risk of bleeding. 10. Anemia: Patient had heme positive but no active bleeding. This could be due to hemorrhoid. 11. Debility: Patient is debilitated and will be discharged to [facility] in [place] for rehabilitation prior to being discharged back home. PHYSICAL EXAMINATION: VITAL SIGNS: Temperature 97.5, pulse 60, blood pressure 132/55, pulse 80, respirations 20. Patient is satting 97% on 2 L. Heart rate is up. GENERAL: Patient is lying in bed, in no acute distress, elderly. HEENT: Normocephalic, atraumatic. Droopy eyelids. NECK: Supple. LUNGS: Clear to auscultation. HEART: Systolic murmur heard. Pulse irregular. ABDOMEN: Distended, soft, nontender. Bowel sounds heard, hyperactive. EXTREMITIES: No pedal edema; however, there is hyperpigmentation of the skin. NEUROLOGIC: Grossly intact. Patient moves all extremities on command. LABORATORY STUDIES: White count 5.1, hemoglobin 11, hematocrit 32.8, platelets 142. Sodium 140, potassium 4.2, chloride 98, carbon dioxide 35, BUN 25, creatinine 0.82, GFR greater than 60, glucose 115, calcium 9.2. DISCHARGE INSTRUCTIONS: Patient is being discharged to rehabilitation at [facility] in [place] to receive physical therapy as tolerated. Patient should continue on a diabetic and cardiac diet. Followup is scheduled as needed upon discharge from rehabilitation. DISCHARGE MEDICATIONS: 1. Acetaminophen 500 mg 2 tablets every 6 hours as needed for pain. 2. Xanax p.r.n. 0.5 mg every 6 hours. 3. He was given Coreg 3.125 mg b.i.d. 4. Vitamin D3 1000 units p.o. daily. 5. Lexapro 10 mg tablet daily. 6. Glimepiride 2 mg tablet daily. 7. Imdur 30 mg tablet daily. 8. Levofloxacin 750 mg tablet for 3 more days, to start on 10/25/2016. 9. Lisinopril 5 mg tablet daily. 10. Potassium 20 mEq daily. 11. Flomax 0.4 mg daily. 12. Aspirin 81 mg tablet daily. 13. Lipitor 10 mg tablet daily. 14. Lasix 40 mg tablet daily. 15. Omeprazole 40 mg tablet daily. 16. Anoro Ellipta 62.5 mcg/25 mcg 1 inhalation daily. This discharge took 45 minutes to complete. DICTATING PHYSICIAN: NOEMÍ NEELY M.D. [id number] PHY#: [id number] ID: [id number] JOB#: [id number] ACCT: [id number] cc:Bertrand HAIRSTON M.D. >
[2016-10-24] MEDS: CEFTRIAXONE 1 GM/D5W RTU 1 GM/50 ML RTUPB IV SCH (12:40)
[2016-10-24 13:04] VITALS: BP 114/57
--- NOTE | 2016-10-24 18:30 | PDOC PROGRESS REPORT ---
Subjective Progress Note for:: 10/23/16 Subjective:: Patient seems to be doing better with gradual improvement. Pt is denying any chest arm or neck discomfort. Patient denying any PND, orthopnea. Patient denied any sustained palpitations, dizziness, syncope, near syncope. Patient denying any fever chills. Patient denying any other significant discomfort. Patient is maintaining chronic atrial fibrillation with controlled heart rate. Review of systems: Rest review of systems negative. Medications: Medications have been reviewed. Physical Exam Vital Signs: Temp Pulse Resp BP Pulse Ox 97.6 F 67 18 108/35 L 97 10/23/16 19:51 10/23/16 20:42 10/23/16 20:42 10/23/16 19:51 10/23/16 20:42 Intake & Output 10/22/16 10/23/16 10/24/16 06:59 06:59 06:59 Intake Total 930 1232 574 Output Total 3700 2850 1150 Balance -2770 -1618 -576 Weight 95.7 kg 88.7 kg Exam: GENERAL: well-nourished and in no acute distress. Alert and oriented x3 HEAD: Atraumatic, normocephalic. EYES: Pupils equal round and reactive to light, extraocular movements intact, sclera anicteric, conjunctiva are normal. ENT: TMs normal, nares patent, oropharynx clear without exudates. Moist mucous membranes. No oral ulcerations or bleeding gums noted NECK: supple without lymphadenopathy. Trachea is central. No cervical or axillary lymphadenopathy noted. Carotids are 2+, 10 cm WNL LUNGS: Respiration seems nonlabored, no significant accessory muscle action noted. Bibasilar fine crackles noted but no wheezing , rales or rhonchi noted. No significant dullness noted on percussion. CHEST: Palpation of the chest wall shows no significant chest wall tenderness. No other significant abnormalities noted. 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 ABDOMEN: Soft, no significant tenderness appreciated, normoactive bowel sounds. No guarding, no rebound. No rigidity noted . No masses appreciated. EXTREMITIES: Pedal pulses are 1-2+, no calf tenderness noted. No clubbing or cyanosis. 1+ pedal edema right, 1+ left being noted. Chronic lymphedema changes noted. NEUROLOGICAL: Focused neurological exam showed no significant neurologic deficit. Normal speech, no focal weakness appreciated. PSYCH: Normal mood, normal affect. Judgment and insight within normal limits. SKIN: No significant ecchymosis, rash, ulcerations or signs of pruritus noted. MUSCULOSKELETAL EXAM: No significant joint swelling noted. Results Laboratory Results: 10/22/16 04:27 10/23/16 05:09 10/23/16 10/23/16 05:09 05:15 Sodium 140.4 Potassium 4.2 Chloride 98 Carbon Dioxide 35 H Anion Gap 7 BUN 25 H Creatinine 0.82 Est GFR ( Amer) > 60 Est GFR (Non-Af Amer) > 60 Glucose 115 H Calcium 9.2 Urine Color YELLOW Urine Appearance CLEAR Urine pH 6.0 Ur Specific Harleigh 1.006 Urine Protein NEGATIVE Urine Glucose (UA) NEGATIVE Urine Ketones NEGATIVE Urine Blood MODERATE H Urine Nitrite NEGATIVE Ur Leukocyte Esterase NEGATIVE Urine WBC (Auto) 2 Urine RBC (Auto) 4 10/17/16 10/17/16 10/18/16 17:32 22:48 04:58 Troponin I 0.685 9.200 19.400 Impressions: Venous Doppler Study 10/17/16 00:00 IMPRESSION: NO EVIDENCE DVT OR SVT IN EITHER LEG. Chest X-Ray 10/17/16 12:12 IMPRESSION: 1. Cardiomegaly with no eliana CHF. 2. Possible early right lower lobe pneumonia. Abdomen/Pelvis CT 10/20/16 00:00 IMPRESSION: NO ACUTE PROCESS IN THE ABDOMEN OR PELVIS. Assessment & Plan - Diagnosis (1) Non-STEMI (non-ST elevated myocardial infarction) Is this a current diagnosis for this admission?: Yes (2) Hypotension Qualifiers: Hypotension type: unspecified hypotension type Qualified Code(s): I95.9 - Hypotension, unspecified Is this a current diagnosis for this admission?: Yes (3) CHF (congestive heart failure) Qualifiers: Congestive heart failure type: diastolic Congestive heart failure chronicity: acute on chronic Qualified Code(s): I50.33 - Acute on chronic diastolic (congestive) heart failure Is this a current diagnosis for this admission?: Yes (4) Hyperkalemia Is this a current diagnosis for this admission?: Yes (5) Right lower lobe pneumonia Qualifiers: Pneumonia type: due to unspecified organism Qualified Code(s): J18.1 - Lobar pneumonia, unspecified organism Is this a current diagnosis for this admission?: Yes (6) Diabetes mellitus Qualifiers: Diabetes mellitus type: type 2 Diabetes mellitus complication status: with neurologic complications Diabetes mellitus complication detail: with unspecified neuropathy Diabetes mellitus molding process technician insulin use: without molding process technician use Qualified Code(s): 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 2 diabetes mellitus with diabetic neuropathy, unspecified (8) Lymphedema of both lower extremities Is this a current diagnosis for this admission?: Yes (9) Atrial fibrillation Qualifiers: Atrial fibrillation type: chronic Qualified Code(s): I48.2 - Chronic atrial fibrillation Is this a current diagnosis for this admission?: Yes (10) COPD (chronic obstructive pulmonary disease) Qualifiers: COPD type: unspecified COPD Qualified Code(s): J44.9 - Chronic obstructive pulmonary disease, unspecified Is this a current diagnosis for this admission?: Yes (11) Respiratory failure Qualifiers: Chronicity: acute on chronic Respiratory failure complication: hypoxia and hypercapnia Qualified Code(s): J96.21 - Acute and chronic respiratory failure with hypoxia; J96.22 - Acute and chronic respiratory failure with hypercapnia Is this a current diagnosis for this admission?: Yes - Notes Notes: Patient has been switched to p.o. diuretics. Seems to be maintaining good urine output and there is no evidence of fluid retention. There has been no evidence of angina or angina equivalent symptoms lately and for the last 48 hours. Discussed with hospitalist that patient is safe to be discharged. Will be happy to follow patient in the office. Non-STEMI: Patient has positive EKG changes and also positive enzymes. Patient denies any chest pain. Patient currently for medical management only. Hypotension: Multifactorial. Possible combination of volume depletion, cardiogenic, sepsis related. Continue supportive care. 2D echo shows relatively well-preserved LVEF. Hypotension has improved. Blood pressure has been stable. CHF: Patient gives chronic history of CHF. Seems to be fluid overloaded. Continue diuretic therapy. Hyperkalemia: Potassium today in normal range, continue to observe. Right lower lobe pneumonia: This is based on chest x-ray review and symptoms of fever cough and dyspnea. Continue with antibiotic therapy. Diabetes: Avoid hypo-and hyperglycemia. 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 Elevated troponin I: It is now felt to be related to non-STEMI. 2D echo does show inferior wall motion abnormalities. Medical management is well tolerated and seems effective. Lymphedema of the lower extremity: Currently is stable, associated cellulitis seems resolved. Atrial fibrillation: This is chronic. Rate is well controlled. Continue chronic anticoagulation with Coumadin COPD: Significantly improved and stable. Continue bronchodilator therapy and other therapy. Respiratory failure: Significantly improved. Currently is stable. - Time Time with patient: 15-25 minutes - CODE STATUS : was discussed, patient remains DO NOT RESUSCITATE. Surrogate decision-maker unchanged. Multiple medical problems were addressed. More than 50% of the time spent coordinating care, discussing management plans with involved caregivers. Management plans discussed with involved personnels. Medical decision making was of moderate to high complexity, patient's has multiple comorbidities.
--- NOTE | 2016-10-24 18:30 | PDOC PROGRESS REPORT ---
Subjective Progress Note for:: 10/22/16 Subjective:: Patient seems to be doing better with gradual improvement. Pt is denying any chest arm or neck discomfort. Patient denying any PND, orthopnea. Patient denied any sustained palpitations, dizziness, syncope, near syncope. Patient denying any fever chills. Patient denying any other significant discomfort. Patient is maintaining chronic atrial fibrillation with controlled heart rate. Review of systems: Rest review of systems negative. Medications: Medications have been reviewed. Physical Exam Vital Signs: Temp Pulse Resp BP Pulse Ox 98.3 F 72 20 134/58 H 98 10/22/16 16:03 10/22/16 16:03 10/22/16 16:03 10/22/16 16:03 10/22/16 16:03 Intake & Output 10/21/16 10/22/16 10/23/16 06:59 06:59 06:59 Intake Total 1489 168 0839 Output Total 2500 3700 2000 Balance -4389 -5722 -908 Weight 96 kg 95.7 kg 95.7 kg Exam: GENERAL: well-nourished and in no acute distress. Alert and oriented x3 HEAD: Atraumatic, normocephalic. EYES: Pupils equal round and reactive to light, extraocular movements intact, sclera anicteric, conjunctiva are normal. ENT: TMs normal, nares patent, oropharynx clear without exudates. Moist mucous membranes. No oral ulcerations or bleeding gums noted NECK: supple without lymphadenopathy. Trachea is central. No cervical or axillary lymphadenopathy noted. Carotids are 2+, 10 cm WNL LUNGS: Respiration seems nonlabored, no significant accessory muscle action noted. Bibasilar fine crackles noted but no wheezing , rales or rhonchi noted. No significant dullness noted on percussion. CHEST: Palpation of the chest wall shows no significant chest wall tenderness. No other significant abnormalities noted. 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 ABDOMEN: Soft, no significant tenderness appreciated, normoactive bowel sounds. No guarding, no rebound. No rigidity noted . No masses appreciated. EXTREMITIES: Pedal pulses are 1-2+, no calf tenderness noted. No clubbing or cyanosis. 1+ pedal edema right, 1+ left being noted. Chronic lymphedema changes noted. NEUROLOGICAL: Focused neurological exam showed no significant neurologic deficit. Normal speech, no focal weakness appreciated. PSYCH: Normal mood, normal affect. Judgment and insight within normal limits. SKIN: No significant ecchymosis, rash, ulcerations or signs of pruritus noted. MUSCULOSKELETAL EXAM: No significant joint swelling noted. Results Laboratory Results: 10/22/16 04:27 10/22/16 04:27 10/22/16 10/22/16 04:27 04:27 WBC 4.3 RBC 3.62 L Hgb 11.1 L Hct 33.5 L MCV 93 MCH 30.7 MCHC 33.2 RDW 14.3 H Plt Count 160 Sodium 141.0 Potassium 3.9 Chloride 100 Carbon Dioxide 35 H Anion Gap 6 BUN 25 H Creatinine 0.89 Est GFR ( Amer) > 60 Est GFR (Non-Af Amer) > 60 Glucose 127 H Calcium 9.8 10/17/16 10/17/16 10/18/16 17:32 22:48 04:58 Troponin I 0.685 9.200 19.400 Impressions: Venous Doppler Study 10/17/16 00:00 IMPRESSION: NO EVIDENCE DVT OR SVT IN EITHER LEG. Chest X-Ray 10/17/16 12:12 IMPRESSION: 1. Cardiomegaly with no eliana CHF. 2. Possible early right lower lobe pneumonia. Abdomen/Pelvis CT 10/20/16 00:00 IMPRESSION: NO ACUTE PROCESS IN THE ABDOMEN OR PELVIS. Assessment & Plan - Diagnosis (1) Non-STEMI (non-ST elevated myocardial infarction) Is this a current diagnosis for this admission?: Yes (2) Hypotension Qualifiers: Hypotension type: unspecified hypotension type Qualified Code(s): I95.9 - Hypotension, unspecified Is this a current diagnosis for this admission?: Yes (3) CHF (congestive heart failure) Qualifiers: Congestive heart failure type: diastolic Congestive heart failure chronicity: acute on chronic Qualified Code(s): I50.33 - Acute on chronic diastolic (congestive) heart failure Is this a current diagnosis for this admission?: Yes (4) Hyperkalemia Is this a current diagnosis for this admission?: Yes (5) Right lower lobe pneumonia Qualifiers: Pneumonia type: due to unspecified organism Qualified Code(s): J18.1 - Lobar pneumonia, unspecified organism Is this a current diagnosis for this admission?: Yes (6) Diabetes mellitus Qualifiers: Diabetes mellitus type: type 2 Diabetes mellitus complication status: with neurologic complications Diabetes mellitus complication detail: with unspecified neuropathy Diabetes mellitus intermediate frame 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 insulin use: without intermediate frame tender use Qualified Code(s): 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 2 diabetes mellitus with diabetic neuropathy, unspecified (8) Lymphedema of both lower extremities Is this a current diagnosis for this admission?: Yes (9) Atrial fibrillation Qualifiers: Atrial fibrillation type: chronic Qualified Code(s): I48.2 - Chronic atrial fibrillation Is this a current diagnosis for this admission?: Yes (10) COPD (chronic obstructive pulmonary disease) Qualifiers: COPD type: unspecified COPD Qualified Code(s): J44.9 - Chronic obstructive pulmonary disease, unspecified Is this a current diagnosis for this admission?: Yes (11) Respiratory failure Qualifiers: Chronicity: acute on chronic Respiratory failure complication: hypoxia and hypercapnia Qualified Code(s): J96.21 - Acute and chronic respiratory failure with hypoxia; J96.22 - Acute and chronic respiratory failure with hypercapnia Is this a current diagnosis for this admission?: Yes - Notes Notes: Patient has been generally stable but quite debilitated. Currently undergoing some physical therapy. Medications reviewed and patient seems to be on a stable regimen. Non-STEMI: Patient has positive EKG changes and also positive enzymes. Patient denies any chest pain. Patient currently for medical management only. Hypotension: Multifactorial. Possible combination of volume depletion, cardiogenic, sepsis related. Continue supportive care. 2D echo shows relatively well-preserved LVEF. Hypotension has improved. Blood pressure has been stable. CHF: Patient gives chronic history of CHF. Seems to be fluid overloaded. Continue diuretic therapy. Hyperkalemia: Potassium today in normal range, continue to observe. Right lower lobe pneumonia: This is based on chest x-ray review and symptoms of fever cough and dyspnea. Continue with antibiotic therapy. Diabetes: Avoid hypo-and hyperglycemia. Will leave management to medical laboratory specialist. Elevated troponin I: It is now felt to be related to non-STEMI. 2D echo does show inferior wall motion abnormalities. Medical management is being considered at this point. Lymphedema of the lower extremity: Currently is stable, associated cellulitis seems improved. Atrial fibrillation: This is chronic. Rate is well controlled. Continue chronic anticoagulation with Coumadin COPD: Currently is stable to maintain oxygenation and ventilation. Continue bronchodilator therapy and other therapy. Respiratory failure: Acute on chronic hypoxemic and also hypercarbic. Currently is stable. - Time Time with patient: 15-25 minutes - CODE STATUS : was discussed, patient remains DO NOT RESUSCITATE. Surrogate decision-maker unchanged. Multiple medical problems were addressed. More than 50% of the time spent coordinating care, discussing management plans with involved caregivers. Management plans discussed with involved personnels. Medical decision making was of moderate to high complexity, patient's has multiple comorbidities.
--- NOTE | 2016-10-24 18:30 | PDOC PROGRESS REPORT ---
Subjective Progress Note for:: 10/21/16 Subjective:: Patient seems to be doing better with gradual improvement. Pt is denying any chest arm or neck discomfort. Patient denying any PND, orthopnea. Patient denied any sustained palpitations, dizziness, syncope, near syncope. Patient denying any fever chills. Patient denying any other significant discomfort. Patient is maintaining chronic atrial fibrillation with controlled heart rate. Review of systems: Rest review of systems negative. Medications: Medications have been reviewed. Physical Exam Vital Signs: Temp Pulse Resp BP Pulse Ox 98.1 F 88 18 127/54 H 98 10/21/16 15:49 10/21/16 19:00 10/21/16 16:20 10/21/16 15:49 10/21/16 16:20 Intake & Output 10/20/16 10/21/16 10/22/16 06:59 06:59 06:59 Intake Total 2344 1188 910 Output Total 5600 2500 2200 Balance -3256 -1312 -1290 Weight 95.8 kg 96 kg Exam: GENERAL: well-nourished and in no acute distress. Alert and oriented x3 HEAD: Atraumatic, normocephalic. EYES: Pupils equal round and reactive to light, extraocular movements intact, sclera anicteric, conjunctiva are normal. ENT: TMs normal, nares patent, oropharynx clear without exudates. Moist mucous membranes. No oral ulcerations or bleeding gums noted NECK: supple without lymphadenopathy. Trachea is central. No cervical or axillary lymphadenopathy noted. Carotids are 2+, 10 cm WNL LUNGS: Respiration seems nonlabored, no significant accessory muscle action noted. Bibasilar fine crackles noted but no wheezing , rales or rhonchi noted. No significant dullness noted on percussion. CHEST: Palpation of the chest wall shows no significant chest wall tenderness. No other significant abnormalities noted. 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 ABDOMEN: Soft, no significant tenderness appreciated, normoactive bowel sounds. No guarding, no rebound. No rigidity noted . No masses appreciated. EXTREMITIES: Pedal pulses are 1-2+, no calf tenderness noted. No clubbing or cyanosis. 1+ pedal edema right, 1+ left being noted. Chronic lymphedema changes noted. NEUROLOGICAL: Focused neurological exam showed no significant neurologic deficit. Normal speech, no focal weakness appreciated. PSYCH: Normal mood, normal affect. Judgment and insight within normal limits. SKIN: No significant ecchymosis, rash, ulcerations or signs of pruritus noted. MUSCULOSKELETAL EXAM: No significant joint swelling noted. Results Laboratory Results: 10/21/16 05:53 10/21/16 05:53 10/21/16 10/21/16 05:53 05:53 WBC 4.1 RBC 3.61 L Hgb 11.1 L Hct 33.7 L MCV 93 MCH 30.7 MCHC 32.9 RDW 14.2 H Plt Count 151 Seg Neutrophils % 60.6 Lymphocytes % 20.9 Monocytes % 12.7 Eosinophils % 5.5 Basophils % 0.3 Absolute Neutrophils 2.5 Absolute Lymphocytes 0.9 Absolute Monocytes 0.5 Absolute Eosinophils 0.2 Absolute Basophils 0.0 Sodium 141.6 Potassium 4.3 Chloride 103 Carbon Dioxide 30 Anion Gap 9 BUN 26 H Creatinine 0.79 Est GFR ( Amer) > 60 Est GFR (Non-Af Amer) > 60 Glucose 115 H Calcium 9.1 Magnesium 1.8 10/17/16 10/17/16 10/18/16 17:32 22:48 04:58 Troponin I 0.685 9.200 19.400 Impressions: Venous Doppler Study 10/17/16 00:00 IMPRESSION: NO EVIDENCE DVT OR SVT IN EITHER LEG. Chest X-Ray 10/17/16 12:12 IMPRESSION: 1. Cardiomegaly with no eliana CHF. 2. Possible early right lower lobe pneumonia. Abdomen/Pelvis CT 10/20/16 00:00 IMPRESSION: NO ACUTE PROCESS IN THE ABDOMEN OR PELVIS. Assessment & Plan - Diagnosis (1) Non-STEMI (non-ST elevated myocardial infarction) Is this a current diagnosis for this admission?: Yes (2) Hypotension Qualifiers: Hypotension type: unspecified hypotension type Qualified Code(s): I95.9 - Hypotension, unspecified Is this a current diagnosis for this admission?: Yes (3) CHF (congestive heart failure) Qualifiers: Congestive heart failure type: diastolic Congestive heart failure chronicity: acute on chronic Qualified Code(s): I50.33 - Acute on chronic diastolic (congestive) heart failure Is this a current diagnosis for this admission?: Yes (4) Hyperkalemia Is this a current diagnosis for this admission?: Yes (5) Right lower lobe pneumonia Qualifiers: Pneumonia type: due to unspecified organism Qualified Code(s): J18.1 - Lobar pneumonia, unspecified organism Is this a current diagnosis for this admission?: Yes (6) Diabetes mellitus Qualifiers: Diabetes mellitus type: type 2 Diabetes mellitus complication status: with neurologic complications Diabetes mellitus complication detail: with unspecified neuropathy 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 insulin use: without care home use Qualified Code(s): 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 2 diabetes mellitus with diabetic neuropathy, unspecified (8) Lymphedema of both lower extremities Is this a current diagnosis for this admission?: Yes (9) Atrial fibrillation Qualifiers: Atrial fibrillation type: chronic Qualified Code(s): I48.2 - Chronic atrial fibrillation Is this a current diagnosis for this admission?: Yes (10) COPD (chronic obstructive pulmonary disease) Qualifiers: COPD type: unspecified COPD Qualified Code(s): J44.9 - Chronic obstructive pulmonary disease, unspecified Is this a current diagnosis for this admission?: Yes (11) Respiratory failure Qualifiers: Chronicity: acute on chronic Respiratory failure complication: hypoxia and hypercapnia Qualified Code(s): J96.21 - Acute and chronic respiratory failure with hypoxia; J96.22 - Acute and chronic respiratory failure with hypercapnia Is this a current diagnosis for this admission?: Yes - Notes Notes: Non-STEMI: Patient has positive EKG changes and also positive enzymes. Patient denies any chest pain. Patient currently for medical management only. Hypotension: Multifactorial. Possible combination of volume depletion, cardiogenic, sepsis related. Continue supportive care. 2D echo shows relatively well-preserved LVEF. Hypotension has improved. Blood pressure has been stable. CHF: Patient gives chronic history of CHF. Seems to be fluid overloaded. Continue diuretic therapy. Hyperkalemia: Potassium today in normal range, continue to observe. Right lower lobe pneumonia: This is based on chest x-ray review and symptoms of fever cough and dyspnea. Continue with antibiotic therapy. Diabetes: Avoid hypo-and hyperglycemia. 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 Elevated troponin I: It is now felt to be related to non-STEMI. 2D echo does show inferior wall motion abnormalities. Medical management is being considered at this point. Lymphedema of the lower extremity: Currently is stable, associated cellulitis seems improved. Atrial fibrillation: This is chronic. Rate is well controlled. Continue chronic anticoagulation with Coumadin COPD: Currently is stable to maintain oxygenation and ventilation. Continue bronchodilator therapy and other therapy. Respiratory failure: Acute on chronic hypoxemic and also hypercarbic. Currently is stable. - Time Time with patient: 15-25 minutes - More than 50% of the time spent coordinating care, discussing management plans with involved caregivers. Management plans discussed with involved personnels. Medical decision making was of moderate to high complexity, patient's has multiple comorbidities. Medications reviewed and adjusted accordingly: Yes
== END 2016-10-24 14:34 | DRG 871 ==
LOC: ER 11:53 → EH 14:51 → UNDOADMIN 14:51 → EH 15:57 → ICU 16:41 → EH 16:41 → 3S 10-18 19:35
PROVIDERS: ADMIT Family Medicine; ATTEND Family Medicine
PROC: 5A09357 Assistance with Respiratory Ventilation, Less than 24 Consecutive Hours, Continuous Positive Airway Pressure (ICD-10-PCS; principal; 2016-10-17)
PROC: 3E0F73Z Introduction of Anti-inflammatory into Respiratory Tract, Via Natural or Artificial Opening (ICD-10-PCS; 2016-10-17)
DX: A41.51 Sepsis due to Escherichia coli [E. coli] (principal); J96.02 Acute respiratory failure with hypercapnia; I21.4 Non-ST elevation (NSTEMI) myocardial infarction; I50.33 Acute on chronic diastolic (congestive) heart failure; J18.1 Lobar pneumonia, unspecified organism; J96.22 Acute and chronic respiratory failure with hypercapnia; A41.50 Gram-negative sepsis, unspecified; R65.20 Severe sepsis without septic shock; I11.0 Hypertensive heart disease with heart failure; R53.81 Other malaise; Z66 Do not resuscitate; I95.9 Hypotension, unspecified; J44.9 Chronic obstructive pulmonary disease, unspecified; I08.3 Combined rheumatic disorders of mitral, aortic and tricuspid valves; E78.5 Hyperlipidemia, unspecified; I27.2 Other secondary pulmonary hypertension; E11.40 Type 2 diabetes mellitus with diabetic neuropathy, unspecified; Z86.73 Personal history of transient ischemic attack (TIA), and cerebral infarction without residual deficits; F32.9 Major depressive disorder, single episode, unspecified; K44.9 Diaphragmatic hernia without obstruction or gangrene; I48.2 Chronic atrial fibrillation; D64.9 Anemia, unspecified; E87.5 Hyperkalemia; Z90.49 Acquired absence of other specified parts of digestive tract; Z85.820 Personal history of malignant melanoma of skin; Z95.5 Presence of coronary angioplasty implant and graft; Z79.899 Other long term (current) drug therapy; Z87.891 Personal history of nicotine dependence; Z60.2 Problems related to living alone; Z88.6 Allergy status to analgesic agent; Z88.8 Allergy status to other drugs, medicaments and biological substances; Z83.6 Family history of other diseases of the respiratory system
CPT/HCPCS: 36415; 36600; 51701; 71010; 74176; 80048; 80053; 81001; 82272; 82533; 82550; 82553; 82803; 82962; 83605; 83735; 83880; 84484; 85025; 85027; 85610; 85652; 87040; 87077; 87086; 87186; 87493; 93005; 93010; 93306; 93970; 94640; 94660; 96361; 96365; 96375; 99291; G8978-GP; G8979-GP; G8987-GO; G8988-GO; G8989-GO; J0692; J0696; J1650; J1940; J1956; J2543; J2930; J3475; J3490; J7030; J7050; J7620